=== PATIENT | female | born 1950 | race Caucasian/White ===

== ENCOUNTER → 2021-05-30 14:25 | Outpatient (BNVA) | payer MEDICARE, OTHER, SELFPAY | PROVIDERS: Family Provider Family Medicine; PCP Family Medicine; Visit Provider Internal Medicine | DX: E03.9 Hypothyroidism, unspecified (principal) | CPT/HCPCS: 99203; 99204 ==

== ENCOUNTER → 2021-08-15 11:13 | Outpatient (BNVA) | payer MEDICARE, OTHER, SELFPAY | PROVIDERS: Family Provider Family Medicine; PCP Family Medicine; Visit Provider Internal Medicine | DX: E03.9 Hypothyroidism, unspecified (principal); M81.0 Age-related osteoporosis without current pathological fracture | CPT/HCPCS: 99214 ==

== ENCOUNTER 2021-08-29 10:46 | Outpatient (CLI) | payer MEDICARE, SELFPAY ==
[2021-08-29 11:57] LABS: Free T4 Free Thyroxine 2.08 ng/dL (0.82-1.77)
== END 2021-08-29 10:47 | disposition home or self-care (01) ==
LOC: LAB 10:51
PROVIDERS: PCP Family Medicine; Visit Provider Internal Medicine
DX: E03.9 Hypothyroidism, unspecified (principal)
CPT/HCPCS: 84439

== ENCOUNTER 2021-10-15 11:55 | Outpatient (CLI) | payer MEDICARE, OTHER, SELFPAY ==
[2021-10-15 13:08] LABS: Free T4 Free Thyroxine 1.95 ng/dL (0.82-1.77); Thyroid Stimulating Hormone 0.75 uIU/mL (0.27-4.20)
== END 2021-10-15 11:56 | disposition home or self-care (01) ==
LOC: LAB 12:04
PROVIDERS: PCP Family Medicine; Visit Provider Internal Medicine
DX: E03.9 Hypothyroidism, unspecified (principal)
CPT/HCPCS: 36415; 84439; 84443

== ENCOUNTER → 2021-10-17 11:00 | Outpatient (BNVA) | payer MEDICARE, OTHER, SELFPAY | PROVIDERS: PCP Family Medicine; Visit Provider Internal Medicine | DX: E03.9 Hypothyroidism, unspecified (principal); M81.0 Age-related osteoporosis without current pathological fracture | CPT/HCPCS: 99214 ==

== ENCOUNTER 2021-11-01 13:06 | Outpatient (CLI) | payer MEDICARE, OTHER, SELFPAY ==
[2021-11-01 15:05] LABS: Free T4 Free Thyroxine 1.71 ng/dL (0.82-1.77)
== END 2021-11-01 13:07 | disposition home or self-care (01) ==
LOC: LAB 13:11
PROVIDERS: PCP Family Medicine; Visit Provider Internal Medicine
DX: E03.9 Hypothyroidism, unspecified (principal)
CPT/HCPCS: 36415; 84439

== ENCOUNTER 2021-12-24 09:21 | Outpatient (CLI) | payer MEDICARE, OTHER, SELFPAY ==
[2021-12-24 10:26] LABS: Free T4 Free Thyroxine 1.67 ng/dL (0.82-1.77)
== END 2021-12-24 09:22 | disposition home or self-care (01) ==
LOC: LAB 09:23
PROVIDERS: PCP Family Medicine; Visit Provider Internal Medicine
DX: E03.9 Hypothyroidism, unspecified (principal)
CPT/HCPCS: 84439; 84443

== ENCOUNTER 2022-05-16 12:50 | Outpatient (CLI) | payer MEDICARE, OTHER, SELFPAY | END 2022-05-16 12:51 | disposition home or self-care (01) | LOC: LAB 12:53 | PROVIDERS: PCP Family Medicine; Visit Provider Internal Medicine | DX: E03.9 Hypothyroidism, unspecified (principal); M81.0 Age-related osteoporosis without current pathological fracture | CPT/HCPCS: 36415; 84439; 99214 ==

== ENCOUNTER 2022-09-06 20:34 | Emergency (ER) | payer MEDICARE, OTHER, SELFPAY ==
[2022-09-06 20:48] VITALS: BP 157/86; PULSE 84; RESP 16; TEMP 36.5; O2SAT 98; BMI 22.6
--- NOTE | 2022-09-06 20:55 | W.ED.FEMALGU ---
HPI - Female Genitourinary General: Chief complaint: Urogenital-Female Stated complaint: lower back pain, has a UTI Time Seen by Provider: 09/06/22 20:45 History of Present Illness: Patient presents to the ER with complaints of low back pain and left lower quadrant pain. Patient thinks she still has a UTI. Patient has been on Macrobid for 7 days and Cipro for additional 7 days and still is having symptoms. Pertinent past history: recurrent UTIs Onset (ago): week(s) (2) Severity: moderate Female Urogenital Radiation: L Flank Consistency: intermittent Urinary symptoms: Flank Pain Relieving factors: none Associated symptoms: Reports abdominal pain; Deny headache(s) Treatment prior to arrival: other (7 days of Macrobid followed by 7 days of Cipro) Patient : No Review of Systems General: Reports: 10 or more systems reviewed and unremarkable except in HPI and below Const: Denies: fever(s), chills, body aches or change in appetite Eyes: Denies: change in vision ENMT: Denies: throat pain or odynophagia Card: Denies: chest pain, palpitations or irregular heart rhythm Resp: Denies: dyspnea, productive cough, non-productive cough or wheezing GI: Reports: abdominal pain and constipation : Reports: flank pain, dysuria, urinary frequency and urinary urgency Musc: Denies: neck pain, back pain or extremity pain Skin/Breast: Denies: rash, pruritus or erythema Neuro: Denies: headache(s), numbness in extremities or weakness in extremities Psych: Denies: anxiety, depression or mood swings Endo: Denies: polyuria, polydipsia or tired all the time Kwaku/Lymph: Denies: easy bruising, easy bleeding or petechiae All/Imm: Denies: urticaria, throat swelling or tongue swelling PFSH ED PFSH: Medical History Cervical endometriosis Hypothyroid Pelvic floor weakness Prophylactic ovary removal Family History Father Cancer COPD (chronic obstructive pulmonary disease) Mother Asthma Heart attack Social History Smoking and tobacco status: never smoked Quit status (tobacco): not considering quitting Second hand smoke exposure: No Smoking risk assessment/counseling performed?: Yes Alcohol intake: current Alcohol intake frequency: holidays/special occasions only Alcohol type: wine Desire information about alcohol rehabilitation?: No Counseling given: No Desire information about substance/drug rehabilitation?: No Counseling given: No Adopted: No Caregiver/support person: No Lives independently: Yes Household members: spouse Housing: House Marital status: Number of children: 1 Number of grandchildren: 3 Highest education level completed: Bachelor's Degree service: No Current occupational status: retired Physical Exam Const: COMMON NORMALS: no acute distress, average body habitus, patient oriented x3, no limitations, healthy appearing, alert and well nourished HENMT: COMMON NORMALS: normocephalic, atraumatic and hearing grossly normal bilaterally HEAD & SCALP: normocephalic and atraumatic Eye: COMMON NORMALS: Equal, round and reactive pupils present, EOMs intact bilaterally and conjunctivae normal CONJUNCTIVA: Yes conjunctivae normal PUPIL: Yes Equal, round and reactive pupils present Neck/C-Spine: COMMON NORMALS: full ROM, no lymphadenopathy, supple, no JVD and Thyroid normal THYROID: Thyroid normal Lymph: LYMPHATIC: no lymphadenopathy noted Chest: COMMONS NORMALS: normal inspection of the chest and normal palpation of entire chest wall Resp: COMMON NORMALS: normal respiratory effort, No retractions, No use of accessory muscles and clear to auscultation bilaterally AUSCULTATION: clear to auscultation bilaterally Cardio: COMMON NORMALS: no JVD, regular rate, regular rhythm, S1 normal heart sound present, S2 normal heart sound present and No gallops present (Cardio) RATE: regular rate RHYTHM: regular rhythm HEART SOUNDS: S1 normal heart sound present and S2 normal heart sound present GI: COMMON NORMALS: Normal to inspection, nondistended, normoactive bowel sounds present, Soft to palpation, non-tender, No hepatosplenomegaly present and no masses PALPATION: Yes Soft to palpation and Yes No hepatosplenomegaly present : COMMON NORMALS: Yes no CVA tenderness BLADDER/KIDNEY EXAM: Yes no CVA tenderness Back/Pelvis: COMMON NORMALS: no CVA tenderness Extremity: COMMON NORMALS: normal to inspection Neuro: COMMON NORMALS: patient oriented x3, CN's II-XII intact bilaterally, moves all extremities, no focal motor deficits and no sensory deficits noted SENSORIUM/ORIENTATION: Yes alert Psych: COMMON NORMALS: mental status grossly normal, Normal thought process present, cooperative, normal affect and speech normal SPEECH: Yes normal speech THOUGHT PROCESS: Normal thought process present Skin: COMMON NORMALS: no rashes or lesions noted, no wounds, turgor normal, no jaundice, no petechiae and no mottling GENERAL SKIN EXAM: no rashes or lesions noted and turgor normal Course Vital Signs: Vital signs: Vital Signs Temperature 97.7 F 09/06/22 20:48 Pulse Rate 83 09/06/22 22:35 Respiratory Rate 16 09/06/22 22:35 Blood Pressure 153/72 09/06/22 22:35 Pulse Oximetry 99 09/06/22 22:35 Oxygen Delivery Me thod 09/06/22 22:35 MDM - Female Medical Decision Making Patient presents to the ER with 2-week history of UTI-like symptoms were almost completed Macrobid and Cipro with still complaints. Upon history and physical exam review of the lab work which is essentially unremarkable except for low sodium and UTI results and review of the CT scan which showed moderate to severe hydronephrosis and possible stenosis of the ureter as well as severe diverticulosis patient will be referred on an outpatient basis to urology as there is no need for hospitalization due to her BUN and creatinine remaining stable Differential Diagnosis Likely abdominal pain, calculus of kidney, constipation, diverticulitis and gastroenteritis Medical Records I reviewed the patient's medical records. Lab Data 09/06/22 21:12 09/06/22 21:12 Radiology Impressions Abdomen/Pelvis CT 09/06/22 21:02 IMPRESSION: 1. Moderate to severe left hydronephrosis with possible left UPJ stenosis. 2. Severe left lower quadrant colonic diverticulosis. 3. Multiple bibasilar pulmonary nodules with the largest measuring 5.6 mm. Followup as discussed below. For patients at low risk (minimal or absent history of smoking and of other known risk factors), no routine follow-up is indicated. For patients at high risk (history of smoking or of other known risk factors), consider optional CT Chest at 12 months. (Reference: Gurdeep) References: Gurdeep Milan, et al. Guidelines for Management of Incidental Pulmonary Nodules Detected on CT Images: From the Fleischner Society 2017. Radiology. 2017;284(1):228-243. COMMENTS: Consistent with the [employer]'s Incidental Findings Committee white paper (J Am Elicia Radiol 2018): Any incidental renal lesion less than 1 cm or classified as too small to characterize, or any incidental cystic renal lesion characterized as simple-appearing, is likely benign. No follow-up imaging is recommended for these lesions per consensus recommendations based on imaging criteria. Laboratory Results WBC 9.6 10^3/uL (4.0-10.0) 09/06/22 21:12 RBC 4.27 10^6/uL (4.1-5.3) 09/06/22 21:12 Hgb 12.4 g/dL (11.5-15.3) 09/06/22 21:12 Hct 38.0 % (37.0-47.0) 09/06/22 21:12 MCV 89.0 fl (81-99) 09/06/22 21:12 MCH 29.0 pg (28.0-34.0) 09/06/22 21:12 MCHC 32.6 g/dL (30.0-36.0) 09/06/22 21:12 RDW 13.1 % (12.1-15.1) 09/06/22 21:12 Plt Count 410 10^3/cmm (130-400) H 09/06/22 21:12 MPV 8.6 fL (7.4-10.4) 09/06/22 21:12 Neut % (Auto) 68.2 % 09/06/22 21:12 Lymph % (Auto) 22.1 % 09/06/22 21:12 [place] % (Auto) 7.2 % 09/06/22 21:12 Eos % (Auto) 1.8 % 09/06/22 21:12 Baso % (Auto) 0.5 % 09/06/22 21:12 Neut # (Auto) 6.51 10^3/uL (1.8-7.7) 09/06/22 21:12 Lymph # (Auto) 2.1 10^3/uL (0.8-4.8) 09/06/22 21:12 [place] # (Auto) 0.7 10^3/uL (0.2-0.9) 09/06/22 21:12 Eos # (Auto) 0.2 10^3/uL (0.0-0.8) 09/06/22 21:12 Baso # (Auto) 0.1 10^3/uL (0.0-0.1) 09/06/22 21:12 Nucleated RBC % (auto) 0 % 09/06/22 21:12 Nucleated RBCs # 0.0 /100WBC 09/06/22 21:12 Sodium 128 mmol/L (136-145) L 09/06/22 21:12 Potassium 3.8 mmol/L (3.5-5.1) 09/06/22 21:12 Chloride 92 mmol/L (98-107) L 09/06/22 21:12 Carbon Dioxide 25 mmol/L (22-29) 09/06/22 21:12 Anion Gap 14.8 (5-19) 09/06/22 21:12 BUN 12 mg/dL (8-23) 09/06/22 21:12 Creatinine 0.8 mg/dL (0.5-0.9) 09/06/22 21:12 GFR Calculation Not Reportable 09/06/22 21:12 Glucose 97 mg/dL (65-115) 09/06/22 21:12 Calculated Osmolality 266 mOsm/kg (285-295) L 09/06/22 21:12 Calcium 9.5 mg/dL (8.5-10.5) 09/06/22 21:12 Total Bilirubin 0.3 mg/dL (0.15-1.2) 09/06/22 21:12 AST 28 U/L (0-32) 09/06/22 21:12 ALT 10 U/L (0-33) 09/06/22 21:12 Alkaline Phosphatase 108 U/L (35-105) H 09/06/22 21:12 Total Protein 7.7 g/dL (6.6-8.7) 09/06/22 21:12 Albumin 4.1 g/dL (3.5-5.2) 09/06/22 21:12 Globulin 3.6 g/dL (1.3-4.6) 09/06/22 21:12 Urine Color Light yellow (Yellow) 09/06/22 21:23 Urine Appearance Clear (CLEAR) 09/06/22 21:23 Urine pH 7 (5-7) 09/06/22 21:23 Ur Specific [place] 1.005 (1.005-1.030) 09/06/22 21: Urine Protein Neg (Negative) 09/06/22 21: Urine Glucose (UA) Norm (Normal) 09/06/22 21: Urine Ketones 1+ (Negative) H 09/06/22 21: Urine Blood 3+ (Negative) H 09/06/22 21:23 Urine Nitrate Negative (Negative) 09/06/22 21: Urine Bilirubin Neg (Negative) 09/06/22 21: Urine Urobilinogen Neg mg/dL (Negative) 09/06/22 21: Ur Leukocyte Esterase Trace (Negative) H 09/06/22 21: Urine RBC 5-10 /hpf (0-2) H 09/06/22 21: Urine WBC 5-10 /hpf (0-5) H 09/06/22 21: Ur Squamous Epith Cells 0-4 /hpf (0-5) H 09/06/22 21: Ur Transition Epith Cell 0-4 /hpf 09/06/22 21: Amorphous Sediment Not Reportable 09/06/22 21: Urine Bacteria t /hpf (NONE) 09/06/22 21: Urine Mucus t /hpf 09/06/22 21:23 Discharge Plan Discharge Patient Disposition: Home Clinical Impression: Hydronephrosis due to ureteral stricture, Diverticulosis of sigmoid colon, Hyponatremia Condition: Stable Prescriptions: No Action cholecalciferol (vitamin D3) 25 mcg (1,000 unit) capsule 25 mcg PO DAILY levothyroxine 75 mcg tablet 75 mcg PO DAILY Rx Instructions: Take one tablet by mouth daily, and two on Friday. Discharge Orders: Discharge ED (Routine); Ordered 09/06/22 Ordered By: Mickey Boone Referrals: Usama Ruggiero MD [Physician] - 1 week Discharge Activity: Resume usual activity Coding Level of Care Code ED Jeep [employer]ic for [employer]
--- NOTE | 2022-09-06 21:02 | CTR_ITS ---
PROCEDURE INFORMATION: Exam: CT Abdomen And Pelvis With Contrast Exam date and time: 09/06/2022 10:12 PM Age: 72 years old Clinical indication: Abdominal pain; Prior surgery; Surgery type: Oophorectomy; For uterine prolapse; Additional info: Abd pain, flank pain, llq pain, persistent UTI symptoms TECHNIQUE: Imaging protocol: Computed tomography of the abdomen and pelvis with contrast. Radiation optimization: All CT scans at this facility use at least one of these dose optimization techniques: automated exposure control; mA and/or kV adjustment per patient size (includes targeted exams where dose is matched to clinical indication); or iterative reconstruction. Contrast material: OMNI 350; Contrast volume: 100 ml; Contrast route: INTRAVENOUS (IV); REPORTING DATA: Count of CT and Cardiac NM exams in prior 12 months: This patient has received 0 known CTs and 0 known cardiac nuclear medicine studies in the 12 months prior to the current study. COMPARISON: No relevant prior studies available. RADIATION DOSE METRICS: Total DLP (mGy-cm): 402.39 FINDINGS: Lungs: Bibasilar discoid atelectasis and/or scarring. 5.6 mm left lower lobe pulmonary nodule. Axial series 3, image 1. 4 mm right lower lobe pulmonary nodule. Axial series 3, image 6. Possible other smaller nodular opacities in the lung bases. Liver: See Gallbladder and bile ducts finding. Gallbladder and bile ducts: 1.2 cm hepatic cyst between the gallbladder fossa in falciform ligament. Pancreas: Normal. No ductal dilation. Spleen: Calcified splenic granulomas. Adrenal glands: Normal. No mass. Kidneys and ureters: Multiple right renal simple cysts with the largest measuring > 1.0 cm . Moderate to severe left hydronephrosis with possible left UPJ stenosis. Stomach and bowel: Severe left lower quadrant colonic diverticulosis. Appendix: No evidence of appendicitis. Intraperitoneal space: Unremarkable. No free air. No significant fluid collection. Vasculature: Calcification of the abdominal aorta and/or iliac arteries consistent with atherosclerotic vessel disease. Lymph nodes: Unremarkable. No enlarged lymph nodes. Urinary bladder: Unremarkable as visualized. Reproductive: Vaginal pessary. Bones/joints: Unremarkable. No acute fracture. Soft tissues: Unremarkable. CT/CT abdomen pelvis w con* [id number] IMPRESSION: 1. Moderate to severe left hydronephrosis with possible left UPJ stenosis. 2. Severe left lower quadrant colonic diverticulosis. 3. Multiple bibasilar pulmonary nodules with the largest measuring 5.6 mm. Followup as discussed below. For patients at low risk (minimal or absent history of smoking and of other known risk factors), no routine follow-up is indicated. For patients at high risk (history of smoking or of other known risk factors), consider optional CT Chest at 12 months. (Reference: Gurdeep) References: Gurdeep Milan, et al. Guidelines for Management of Incidental Pulmonary Nodules Detected on CT Images: From the Fleischner Society 2017. Radiology. 2017;284(1):228-243. COMMENTS: Consistent with the [employer]'s Incidental Findings Committee white paper (J Am Elicia Radiol 2018): Any incidental renal lesion less than 1 cm or classified as too small to characterize, or any incidental cystic renal lesion characterized as simple-appearing, is likely benign. No follow-up imaging is recommended for these lesions per consensus recommendations based on imaging criteria.
[2022-09-06 21:32] LABS: Basophils # 0.1 10^3/uL (0.0-0.1); Basophils % 0.5 %; Eosinophils # 0.2 10^3/uL (0.0-0.8); Eosinophils % 1.8 %; Hemoglobin 12.4 g/dL (11.5-15.3); Lymphocytes # 2.1 10^3/uL (0.8-4.8); Lymphocytes % 22.1 %; Mean Corpuscular HGB Conc 32.6 g/dL (30.0-36.0); Mean Platelet Volume 8.6 fL (7.4-10.4); Monocytes # 0.7 10^3/uL (0.2-0.9); Monocytes % 7.2 %; Neutrophils # 6.51 10^3/uL (1.8-7.7); Neutrophils % 68.2 %; Nucleated Red Blood Cells % 0 %; Platelet Count 410 10^3/cmm (130-400); Red Blood Count 4.27 10^6/uL (4.1-5.3); Red Cell Distribution Width 13.1 % (12.1-15.1); White Blood Count 9.6 10^3/uL (4.0-10.0)
[2022-09-06 21:42] LABS: Add Urine Microscopic? YES; Bilirubin Urine Neg (Negative); Blood Urine 3+ (Negative); Glucose Urine UA Norm (Normal); Ketones Urine 1+ (Negative); Leukocyte Esterase Urine Trace (Negative); Nitrate Urine Negative (Negative); Protein Urine Neg (Negative); Specific Gravity, Urine 1.005 (1.005-1.030); Urine Appearance Clear (CLEAR); Urine Color Light yellow (Yellow); Urobilinogen Urine Neg (Negative); pH Urine 7 (5-7)
[2022-09-06 21:53] LABS: Alanine Aminotransferase 10 U/L (0-33); Albumin Level 4.1 g/dL (3.5-5.2); Alkaline Phosphatase 108 U/L (35-105); Anion Gap 14.8 (5-19); Aspartate Amino Transferase 28 U/L (0-32); Blood Urea Nitrogen 12 mg/dL (8-23); Calcium 9.5 mg/dL (8.5-10.5); Carbon Dioxide 25 mmol/L (22-29); Chloride 92 mmol/L (98-107); Creatinine Clr Calc Pharmacy 50.6276; Globulin 3.6 g/dL (1.3-4.6); Glucose 97 mg/dL (65-115); Osmolality Calculated 266 mOsm/kg (285-295); Potassium 3.8 mmol/L (3.5-5.1); Sodium 128 mmol/L (136-145); Total Bilirubin 0.3 mg/dL (0.15-1.2); Total Protein 7.7 g/dL (6.6-8.7)
[2022-09-06 21:59] LABS: Add Urine Culture? No; Bacteria Urine t /hpf; Mucus Urine t /hpf; Squamous Epithelial Cell Urine 0-4 /hpf (0-5); Transitional Epi Cells Urine 0-4 /hpf
[2022-09-06] MEDS: iohexol 350 mg/mL 500 mL Btl (per mL) IV (22:07)
[2022-09-06 22:35] VITALS: BP 153/72; PULSE 83; RESP 16; O2SAT 99
--- NOTE | 2022-09-10 15:12 | DCPLANNER ---
Addendum entered by Gertrudis Kee 09/12/22 07:54: Patient had an appointment scheduled with urology - patient did attend appointment Addendum entered by Gertrudis Kee 09/11/22 08:52: Patient has a follow up appointment scheduled for Friday, September 11, 2022 at 10:[address] Ruggiero. Clinic will call patient with appointment information Original Note: network services project manager had message to schedule a follow up appointment for patient with urology. network services project manager sent patients information to front office staff at urology. Patients information will be printed and reviewed. Clinic will call patient with appointment information.
--- NOTE | 2022-09-10 15:22 | DCPLANNER ---
Addendum entered by Gertrudis Kee 09/25/22 09:28: Patient did attend appointment. Original Note: Patient was called due to no primary care physician - patient has an appointment scheduled for Sunday, September 18, 2022 at 10:[address] Jason at [facility]. Patient is aware of appointment.
== END 2022-09-06 23:43 | disposition home or self-care (01) ==
PROVIDERS: Emergency Provider Emergency Medicine
DX: N13.1 Hydronephrosis with ureteral stricture, not elsewhere classified (principal); K57.30 Diverticulosis of large intestine without perforation or abscess without bleeding; E03.9 Hypothyroidism, unspecified
CPT/HCPCS: 74177; 80053; 81001; 85025; 99285; Q9967

== ENCOUNTER → 2022-09-11 12:15 | Outpatient (BNVA) | payer MEDICARE, OTHER, SELFPAY | PROVIDERS: Visit Provider Urology | DX: N32.89 Other specified disorders of bladder (principal); N13.5 Crossing vessel and stricture of ureter without hydronephrosis; R30.0 Dysuria | CPT/HCPCS: 51798; 52000; 81003; 99204 ==

== ENCOUNTER 2022-09-16 09:09 | Inpatient (IN) | payer MEDICARE, OTHER, SELFPAY ==
[2022-09-13 13:31] VITALS: BMI 22.6
--- NOTE | 2022-09-13 13:57 | ECG_ITS ---
[facility] Test Date: 2022-09-13 Pat Name: Symone Olmedo Department: Room: Gender: Female Conciliator: : 1950 Requested By: Johnathan Arce Order Number: [id number] Reading MD: CHRISTEN ZIEGLER Measurements Intervals [place] Rate: 76 P: 64 MI: 158 QRS: -22 QRSD: 81 T: 49 QT: 350 QTc: 394 Interpretive Statements SINUS RHYTHM LOW QRS VOLTAGE IN PRECORDIAL LEADS [QRS DEFLECTION < 1.0 mV IN CHEST LEADS] POSSIBLE ANTERIOR MYOCARDIAL INFARCTION , OF INDETERMINATE AGE [30 ms Q WAVE IN V3/V4, OR R < 0.2 mV IN V4] No previous ECG available for comparison Electronically Signed On 09-14-2022 23:43:14 CDT by CHRISTEN ZIEGLER [id number]
--- NOTE | 2022-09-13 14:41 | P.ANESASSM_ITS ---
Pre-Anesthetic Assessment Height/Weight: Height 1.55 m Weight 54.431 kg Operation Date: 09/16/22 07:00 Proposed Procedures p Transurethral Resection Bladder Tumor(Not Applicable) - Usama Ruggiero MD s CYSTOSCOPY TRANSURETHRAL RESECTION BLADDER TUMOR,LEFT RETROGRADE PYELOGRAM, POSSIBLE URETEROSCOPY POSSIBLE STENT [id number] MODIFIER 26,N32.89 N13.5(Not Applicable) - Usama Ruggiero MD s Retrograde Pyelogram(Left) - Usama Ruggiero MD s Ureteroscopy(Left) - Usama Ruggiero MD s Ureteral Stent Placement(Left) - Usama Ruggiero MD Familial anesthetic complications: none Was Beta Seema taken within 24 hours: N/A Was Clonidine taken within 24 hours: N/A Social Tobacco and No alcohol Exam alert, oriented x 3 and regular rate & rhythm Airway Submandibular: within normal limits Cervical ROM: within normal limits Mallampati: Class II Dentition: false Pulmonary Chronic Obstructive Pulmonary Disease Metabolic Thyroid Disease Neuropsych Anxiety Anesthetic Plan ASA status: 3 Anesthesia: General Medications/Allergies Home Medications Medication Instructions Recorded Confirmed Last Taken Type levothyroxine 75 mcg tablet 75 mcg PO DAILY 10/17/21 09/13/22 Unknown History alprazolam 0.25 mg tablet (Xanax) 0.25 mg PO DAILY 09/13/22 09/13/22 Unknown History Allergies Allergy/AdvReac Type Severity Reaction Status Date / Time No Known Allergies Allergy Verified 09/11/22 12:12 [facility] Anesthesia Medical History Cervical endometriosis Hypothyroid Pelvic floor weakness Prophylactic ovary removal Family History (Updated 09/11/22 @ 12:32 by Nkii Sam) Father , Age 79 Cancer COPD (chronic obstructive pulmonary disease) Mother , Age 83 Asthma Heart attack Social History (Updated 09/11/22 @ 12:34 by Niki Sam) Smoking and tobacco status: former smoker Quit status (tobacco): has quit using tobacco Second hand smoke exposure: No Smoking risk assessment/counseling performed?: Yes Alcohol intake: current Alcohol intake frequency: holidays/special occasions only Alcohol type: wine Desire information about alcohol rehabilitation?: No Counseling given: No Desire information about substance/drug rehabilitation?: No Counseling given: No Adopted: No Caregiver/support person: No Lives independently: Yes Household members: spouse Housing: House Marital status: Number of children: 1 Number of grandchildren: 3 Highest education level completed: Bachelor's Degree service: No Current occupational status: retired Data Anesthesia Cardiac Studies: No Data to Display
[2022-09-13 14:56] LABS: Basophils # 0.1 10^3/uL (0.0-0.1); Basophils % 0.5 %; Eosinophils # 0.2 10^3/uL (0.0-0.8); Eosinophils % 1.9 %; Hematocrit 38.9 % (37.0-47.0); Hemoglobin 12.4 g/dL (11.5-15.3); Lymphocytes # 1.6 10^3/uL (0.8-4.8); Lymphocytes % 17.5 %; Mean Corpuscular HGB Conc 31.9 g/dL (30.0-36.0); Mean Corpuscular Hemoglobin 28.4 pg (28.0-34.0); Mean Platelet Volume 8.5 fL (7.4-10.4); Monocytes # 0.6 10^3/uL (0.2-0.9); Monocytes % 6.5 %; Neutrophils # 6.78 10^3/uL (1.8-7.7); Neutrophils % 73.4 %; Nucleated Red Blood Cells % 0 %; Platelet Count 432 10^3/cmm (130-400); Red Blood Count 4.37 10^6/uL (4.1-5.3); Red Cell Distribution Width 13.2 % (12.1-15.1); White Blood Count 9.3 10^3/uL (4.0-10.0)
[2022-09-13 15:04] LABS: Alanine Aminotransferase 10 U/L (0-33); Albumin Level 3.7 g/dL (3.5-5.2); Alkaline Phosphatase 89 U/L (35-105); Anion Gap 16.7 (5-19); Aspartate Amino Transferase 29 U/L (0-32); Blood Urea Nitrogen 12 mg/dL (8-23); Calcium 9.3 mg/dL (8.5-10.5); Carbon Dioxide 26 mmol/L (22-29); Chloride 101 mmol/L (98-107); Creatinine Clr Calc Pharmacy 50.6276; Globulin 3.7 g/dL (1.3-4.6); Glucose 102 mg/dL (65-115); Osmolality Calculated 288 mOsm/kg (285-295); Potassium 4.7 mmol/L (3.5-5.1); Sodium 139 mmol/L (136-145); Total Bilirubin 0.2 mg/dL (0.15-1.2); Total Protein 7.4 g/dL (6.6-8.7)
[2022-09-16] VITALS (17 sets, daily range): BP systolic 98–163; BP diastolic 57–81; PULSE 56–76; RESP 15–19; TEMP 36.1–37.3; O2SAT 92–100
[2022-09-16] MEDS: sodium chloride 0.9% 1,000 ML 30 ML IV (06:24)
--- NOTE | 2022-09-16 06:47 | ANES.PAUD2 ---
Pre-Anesthetic Update Pre-Anesthetic Assessment: Date of Surgery/Procedure: 09/16/22 Preop Diagnosis: Newly diagnosed bladder tumor Proposed Procedure: Operation Date: 09/16/22 07:00 Proposed Procedures p Transurethral Resection Bladder Tumor(Not Applicable) - Usama Ruggiero MD s CYSTOSCOPY TRANSURETHRAL RESECTION BLADDER TUMOR,LEFT RETROGRADE PYELOGRAM, POSSIBLE URETEROSCOPY POSSIBLE STENT [id number] MODIFIER 26,N32.89 N13.5(Not Applicable) - Usama Ruggiero MD s Retrograde Pyelogram(Left) - Usama Ruggiero MD s Ureteroscopy(Left) - Usama Ruggiero MD s Ureteral Stent Placement(Left) - Usama Ruggiero MD Any changes to Pre-Anesthetic Assessment?: No Last Intake: Intake (cookie before 11 pm) Last Liquid Date 09/15/22 Last Liquid Time 23:45 Last Solid Date 09/15/22 Last Solid Time 23:45 Vitals: Temperature 99.1 F 09/16/22 06:10 Temperature Source Temporal Artery S can 09/16/22 06:10 Pulse Rate 76 09/16/22 06:10 Respiratory Rate 18 09/16/22 06:10 Blood Pressure 147/76 09/16/22 06:10 Blood Pressure Heather n 99 09/16/22 06:10 Pulse Oximetry 97 09/16/22 06:10 Oxygen Delivery Me thod 09/16/22 06:10 Exam: Pre-Anes Outpt Exam: alert, oriented x 3, clear to auscultation bilaterally and regular rate & rhythm Cardiac Studies: No Data to Display
[2022-09-16] MEDS: levofloxacin-dextrose 5 % 500 MG/100 ML PREMIX 100 MG IV (07:13)
--- NOTE | 2022-09-16 07:14 | W.PM.OPSUD ---
Surgery/Procedure H&P Update DATE OF PROCEDURE: September 16, 2022 DATE H&P PERFORMED: 09/11/22 H&P UPDATE INFORMATION: I have reviewed H&P completed within last 30 days, I have examined patient prior to procedure, No changes to prior documentation and H&P is in [facility] EMR on date indicated PREOP DIAGNOSIS: Newly diagnosed bladder tumor PLANNED PROCEDURE: Operation Date: 09/16/22 07:00 Proposed Procedures p Transurethral Resection Bladder Tumor(Not Applicable) - Usama Ruggiero MD s CYSTOSCOPY TRANSURETHRAL RESECTION BLADDER TUMOR,LEFT RETROGRADE PYELOGRAM, POSSIBLE URETEROSCOPY POSSIBLE STENT [id number] MODIFIER 26,N32.89 N13.5(Not Applicable) - Usama Ruggiero MD s Retrograde Pyelogram(Left) - MD kim Saini Ureteroscopy(Left) - Usama Ruggiero MD s Ureteral Stent Placement(Left) - Usama Ruggiero MD
[2022-09-16] MEDS: iohexol 350 mg/mL 100 mL Btl XX (08:04)
--- NOTE | 2022-09-16 09:17 | P.OP_ITS ---
Operative Report Date of procedure: September 16, 2022 Pre-op diagnosis: Newly diagnosed bladder tumor Left ureteral obstruction (UPJ area) without clear evidence of neoplastic etiology Post-op diagnosis: Newly diagnosed bladder tumor likely high-grade and invasive. Left ureteral obstruction (UPJ area) without clear evidence of neoplastic etiology Procedure done: 1. Cystoscopy, LEFT retrograde ureteropyelogram 2. LEFT ureteroscopy (no stent) 3. Transurethral section of bladder tumor large Implants: None Specimens removed/disposition: Bladder tumor chips Pathology: Bladder tumor chips Surgeon: Monik Estimated blood loss: Less than 10 cc Urine output: Not measured Complications: None Findings: Anesthesia: General Condition: Stable Disposition: PACU Intraoperative findings: * No evidence of filling defect at the left UPJ. More consistent with congenital UPJ obstruction. Could not negotiate the flexible ureteroscope to the point of narrowing. No stent * Large invasive bladder tumor with more intramural appearance than papillary. Muscle seen at the base of resection. High-grade appearance Brief History: Symone is a very pleasant 72-year-old white female who was recently evaluated in the emergency department for acute left renal colic. On retrospect she had had lesser degree of similar type symptoms for years on the left flank area. Often when her bladder is overfull she would notice it. The episode that brought her to the emergency department was more consistent with an acute obstructive problem. CT scan demonstrated what appeared to be left UPJ obstruction without obvious stone. Cannot clearly see any soft tissue density at that area either. It was rather inconclusive as to the etiology but the suspicion was based on her prior history of intermittent pain that she actually had some degree of UPJ obstruction chronically with an exacerbation acutely. A coincidental finding on the CT scan was a intramural thickening suspicious for invasive TCCA on the left lateral/anterior bladder wall. 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 The area was quite large as demonstrated on the CT scan. She is admitted now for through outpatient surgery for cystoscopy transurethral section of bladder tumor, left retrograde ureteropyelogram, possible ureteroscopy possible stent pending findings of the obstruction at the UPJ area. If it appears that she has a benign source accounting for the UPJ obstruction the plan will be to hold on any stenting etc. and encourage avoiding excessive fluid intake for symptomatic improvement only until further information is gleaned as to what would be required for the bladder Procedure: After routine preoperative evaluation examination and obtaining of informed consent she was taken to the operating suite on 09/16/2022 where general anesthesia was administered without difficulty after appropriate timeout was performed, SCDs confirmed to be functioning, preoperative antibiotics administered, beta-jamal protocol confirmed. Prepped and draped in the usual sterile fashion in dorsolithotomy position pain careful attention to avoiding pressure points. 21 [place]erratian cystoscope with 30 degree lens was introduced into the urethra meatus and advanced into the bladder without difficulty. The 30 and 70 degree lenses were used to thoroughly inspect the bladder. Findings seen in the clinic were confirmed. The bulk of the tumor was in the anterior left lateral location of the bladder. The bladder was thoroughly flushed with sterile water. An 8 [place]err[place]ian cone-tip catheter was intubated to the left ureteral orifice for left retrograde ureteropyelogram which demonstrated: Normal course and caliber of the ureter until the proximal ureter where there was a distinct area of narrowing just below the UPJ with some tortuosity with characteristics like a crossing vessel appearance the pyelocalyceal system was very dilated. There was no filling defect in this area. There is no irregular mucosal appearance suspicious for neoplastic process A flexible tip guidewire was then easily advanced up the left ureter bypassing this narrowed area curling in the area of the upper pole calyx and the distal ureter was dilated with a 15 Montserratian 4 cm balloon. A 24 cm ureteral access sheath was easily advanced up the left ureter over the wire under fl uoroscopic monitoring but could not be manipulated all the way to the hub. This was consistent with some the narrowing seen below the UPJ. A flexible ureteroscope was then advanced over the wire into the proximal ureter. Visualization was not as good because of the wire reducing the flow of fluid. The wire was removed and the scope was used to inspect carefully the ureter. It could not be manipulated all the way to the UPJ obstruction. Wire was passed again with same result. More contrast was injected then in the area reinspected the same findings as mentioned above. The scope was removed and an opening ureteral catheter was advanced over the guidewire through the sheath to facilitate drainage of the upper tract to prevent UPJ obstruction type pain. The catheter and the sheath were then removed without difficulty. Irrigation was then changed to normal saline and the gyrus scope was passed into the urethra after dilation with [place] sounds. The area involved with tumor was quite large. It was friable. It had a very invasive appearance. The gyrus bipolar system was utilized with the super loop for resection and enough resection was performed to resect the irregular surface/friable tissue and deep into the muscle as confirmed via cystoscopic examination. Total resection area was greater than 5 cm. The button probe was then utilized for meticulous hemostasis. There still was friable tissue but no severe bleeding. The chips were evacuated from the bladder with an Mom Trusted evacuator. Bladder was drained with a 20 [place]err[place]ian three-way Mojica catheter with light CBI with normal saline running. Efflux was clear. Was confirmed to be functioning well. She tolerated procedure well without complications and was awakened in the operating room and returned to the cover room in stable condition. Plans: 1. Admit to observation status with anticipated discharge tomorrow. Decision for catheter in place at discharge or removed prior to discharge will be made tomorrow. 2. We will start proceeding with consultation with oncology for possible bladder sparing techniques as well as neoadjuvant treatment. Soon with tertiary center for consideration of extirpate of therapy in combination with radiation. 3. I reviewed all the above with the patient's family who are actively engaged 4. Consideration for further work-up/repair of left UPJ obstruction will need to be made at some point in this process
[2022-09-16] MEDS: dextrose 5%-ns + KCl 20 20 MEQ/1,000 ML BAG 30 MEQ IV (10:54)
[2022-09-16] MEDS: HYDROcodone-acetaminophen 5-325 mg Tablet 1 TAB PO ×2 (10:56→17:42)
--- NOTE | 2022-09-16 13:52 | ANE.PACU2 ---
Inpatient post-anesthesia follow up: Airway intact: Yes Vital signs: Temperature 97 F Pulse Rate 75 Respiratory Rate 15 Blood Pressure 132/67 Pulse Oximetry 97 Oxygen Delivery Me thod Room Air Oxygen Flow Rate 6 Fraction of Inspir ed Oxygen Hydration adequate: Yes Nausea and vomiting: No Pain level: 1 Mental status: Baseline
[2022-09-16] MEDS: morphine 4 mg/mL SDV 1 mL 2 MG IVP ×3 (13:57→20:11)
[2022-09-16] MEDS: docusate sodium 100 mg Capsule PO (17:41)
[2022-09-17] VITALS (10 sets, daily range): BP systolic 112–152; BP diastolic 64–78; PULSE 66–85; RESP 14–18; TEMP 36.4–36.8; O2SAT 93–94
[2022-09-17] MEDS: HYDROcodone-acetaminophen 5-325 mg Tablet 1 TAB PO ×4 (01:00→20:06)
[2022-09-17] MEDS: morphine 4 mg/mL SDV 1 mL 2 MG IVP ×3 (04:26→16:05)
[2022-09-17] MEDS: ALPRAZolam 0.5 mg Tablet 0.25 MG PO (08:01)
[2022-09-17] MEDS: levothyroxine 75 mcg Tablet PO (08:01)
[2022-09-17] MEDS: docusate sodium 100 mg Capsule PO ×2 (08:01→17:05)
--- NOTE | 2022-09-17 16:48 | PM.PN ---
Subjective Subjective: Urology f/u: POD#1 Having significant LEFT renal colic overnight and throughout today as well. Urine clear. Not emptying well post cath removal today. Was planning on discharge today but due to the difficulty with pain control have changed to inpatient status with need for care to cross at least 2 midnights. Will replace hinson tonight. Focus on pain control. Medications: Reviewed: Yes Vitals/I&O/Wt Last Vital Signs Temp 98.2 F 09/17/22 12:00 Pulse 70 09/17/22 12:00 Resp 18 09/17/22 16:05 BP 117/64 09/17/22 12:00 Pulse Ox 94 09/17/22 12:00 O2 Del Method 09/17/22 12:00 O2 Flow Rate 6 09/16/22 09:06 09/17/22 09/17/22 09/17/22 06:59 14:59 22:59 Intake Total 100 / 740 Balance 100 / -410 Physical Exam Const: COMMON NORMALS: patient oriented x3 and alert Chest: OTHER: Normal movements Resp: OTHER: unlabored GI: OTHER: soft Neuro: COMMON NORMALS: patient oriented x3 SENSORIUM/ORIENTATION: Yes alert Psych: OTHER: mild anxiety Skin: OTHER: no rash Urinary Catheter Management: Hinson: Cath Placed During This Visit: yes, but has since been removed by the nurse Reason for Continuing Indwelling Catheter: Decision to DC Catheter Urinary Catheter Date of Insertion: 09/16/22 Urinary Catheter Time of Insertion: 07:40 Date Urinary Catheter Removed: 09/17/22 Time Urinary Catheter Discontinued: 09:45 Data 09/13/22 14:05 09/13/22 14:05 A&P Assessment and plan (1) UPJ obstruction, acquired: (2) Bladder mass: Plan 1. Replace hinson, will leave at d/c. 2. Reevaluate in AM for discharge appropriateness Attestations Medical Necessity Statement*: requiring parenteral pain meds Coding Level of Care Code Acute Code for Chg Fwd Diagnoses UPJ obstruction, acquired N13.5 Bladder mass N32.89
[2022-09-17] MEDS: dextrose 5%-ns + KCl 20 20 MEQ/1,000 ML BAG 30 MEQ IV (17:40)
--- NOTE | 2022-09-17 18:19 | PC.NURSE ---
6 void trial done today per Dr. Ruggiero. Total of output and bladder scan listed below #1 void: 10cc out/ 150cc bladder scanned #2 void: 10cc out/ 174cc bladder scanned #3 void: 50cc out/ 213cc bladder scanned #4 void: 75cc out/ 237cc bladder scanned- patient reporting extreme discomfort and sharp pains. In and out catheterized and had output of light merced urine 200cc. Pt reports relief after catheterization.
[2022-09-18] MEDS: HYDROcodone-acetaminophen 5-325 mg Tablet 1 TAB PO ×2 (00:40→08:57)
[2022-09-18 03:52] VITALS: BP 125/64; PULSE 78; RESP 15; TEMP 37; O2SAT 92
[2022-09-18] MEDS: ALPRAZolam 0.5 mg Tablet 0.25 MG PO (08:08)
[2022-09-18] MEDS: docusate sodium 100 mg Capsule PO (08:10)
[2022-09-18] MEDS: levothyroxine 75 mcg Tablet PO (08:10)
[2022-09-18 08:15] VITALS: BP 152/64; PULSE 78; RESP 16; TEMP 36.7; O2SAT 98
--- NOTE | 2022-09-18 10:27 | PM.DCS ---
Discharge Providers Date of Admission: 09/17/22 16:40 Date of Discharge: September 18, 2022 Attending Provider at Admission: Usama Ruggiero MD Attending Provider at Discharge: Usama Ruggiero MD Diagnoses at Discharge Discharge Diagnosis (1) UPJ obstruction, acquired: Status: Acute (2) Bladder cancer: Details from hospital stay: High-grade muscle invasive proven at TURBT Status: Acute Reason for Visit Reason for Visit: Brief History: Very pleasant well-preserved 72-year-old white female who was evaluated recently in the emergency department for severe left flank pain consistent with renal colic and a CT scan demonstrated what appeared to be UPJ obstruction with no evidence of a stone. On review of the CT scan though it was also noted that she had a very abnormal appearing bladder with what appeared to be an intramural mass suspicious for TCCA. The first evaluation she had a cystoscopy in my office that demonstrated what appeared to be a high grade invasive TCCA consistent with the finding seen on CT scan and she was admitted for TURBT. We also planned for evaluation of the left upper urinary tract to assess for possible neoplastic process as a source of her left UPJ obstruction area. Hospital Course Hospital Course Was admitted through outpatient surgery on 09/16/2022 where she underwent TURBT of a large mass in the bladder described as above. Also underwent left retrograde ureteropyelogram and flexible ureteroscopy with no clear evidence of intraluminal mass or neoplastic process but rather findings more consistent with traditional UPJ obstruction on the left. (She did provide a history of chronic intermittent milder pain on the left for many years typically exacerbated by a very full bladder). Postoperatively she had a lot of left-sided pain as expected following manipulation of the left ureter with ureteroscopy. I did not leave a stent in for concern for possible retrograde transmission of malignant cells in the absence of a malignancy in the left UPJ. The pain was treated conservatively. She also had some difficulty emptying her bladder which historically was not a typical for her with a significant history of pelvic floor prolapse managed with pessary. The catheter was replaced for bladder drainage to help facilitate symptoms. She had no significant bleeding or concerns related to the TURBT. Final pathology did come back demonstrating high-grade muscle invasive TCCA. On postoperative day #2 she was felt to be a good candidate for further convalescence at home and was discharged with Mojica catheter in place and plans for conservative management of her left flank pain related to the UPJ obstruction. Physical Exam Narrative: Alert oriented no acute distress Normal respiration. No wheezing or labored respiration Abdomen soft Normal extremity movement Urine is clear Normal mental status Urinary Catheter Management: Mojica: Cath Placed During This Visit: yes, but has since been removed by the nurse Reason for Continuing Indwelling Catheter: Acute Urinary Retention or Obstruction Urinary Catheter Date of Insertion: 09/16/22 Urinary Catheter Time of Insertion: 07:40 Date Urinary Catheter Removed: 09/17/22 Time Urinary Catheter Discontinued: 09:45 Discharge Data Studies Completed and Pending Completed Studies During Hospitalization Category Date Time Status Pathology: Surgical [PTH] Routine Pth 09/16/22 09:06 Completed Laboratory Results WBC 9.3 10^3/uL (4.0-10.0) 09/13/22 14:05 RBC 4.37 10^6/uL (4.1-5.3) 09/13/22 14:05 Hgb 12.4 g/dL (11.5-15.3) 09/13/22 14:05 Hct 38.9 % (37.0-47.0) 09/13/22 14:05 MCV 89.0 fl (81-99) 09/13/22 14:05 MCH 28.4 pg (28.0-34.0) 09/13/22 14:05 MCHC 31.9 g/dL (30.0-36.0) 09/13/22 14:05 RDW 13.2 % (12.1-15.1) 09/13/22 14:05 Plt Count 432 10^3/cmm (130-400) H 09/13/22 14:05 MPV 8.5 fL (7.4-10.4) 09/13/22 14:05 Neut % (Auto) 73.4 % 09/13/22 14:05 Lymph % (Auto) 17.5 % 09/13/22 14:05 [place] % (Auto) 6.5 % 09/13/22 14:05 Eos % (Auto) 1.9 % 09/13/22 14:05 Baso % (Auto) 0.5 % 09/13/22 14:05 Neut # (Auto) 6.78 10^3/uL (1.8-7.7) 09/13/22 14:05 Lymph # (Auto) 1.6 10^3/uL (0.8-4.8) 09/13/22 14:05 [place] # (Auto) 0.6 10^3/uL (0.2-0.9) 09/13/22 14:05 Eos # (Auto) 0.2 10^3/uL (0.0-0.8) 09/13/22 14:05 Baso # (Auto) 0.1 10^3/uL (0.0-0.1) 09/13/22 14:05 Nucleated RBC % (auto) 0 % 09/13/22 14:05 Nucleated RBCs # 0.0 /100WBC 09/13/22 14:05 Sodium 139 mmol/L (136-145) 09/13/22 14:05 Potassium 4.7 mmol/L (3.5-5.1) 09/13/22 14:05 Chloride 101 mmol/L (98-107) 09/13/22 14:05 Carbon Dioxide 26 mmol/L (22-29) 09/13/22 14:05 Anion Gap 16.7 (5-19) 09/13/22 14:05 BUN 12 mg/dL (8-23) 09/13/22 14:05 Creatinine 0.8 mg/dL (0.5-0.9) 09/13/22 14:05 GFR Calculation Not Reportable 09/13/22 14:05 Glucose 102 mg/dL (65-115) 09/13/22 14:05 Calculated Osmolality 288 mOsm/kg (285-295) 09/13/22 14:05 Calcium 9.3 mg/dL (8.5-10.5) 09/13/22 14:05 Total Bilirubin 0.2 mg/dL (0.15-1.2) 09/13/22 14:05 AST 29 U/L (0-32) 09/13/22 14:05 ALT 10 U/L (0-33) 09/13/22 14:05 Alkaline Phosphatase 89 U/L (35-105) 09/13/22 14:05 Total Protein 7.4 g/dL (6.6-8.7) 09/13/22 14:05 Albumin 3.7 g/dL (3.5-5.2) 09/13/22 14:05 Globulin 3.7 g/dL (1.3-4.6) 09/13/22 14:05 Vitals Last Vital Signs Temp 98.6 F 09/18/22 03:52 Pulse 78 09/18/22 03:52 Resp 15 09/18/22 03:52 BP 125/64 09/18/22 03:52 Pulse Ox 92 09/18/22 03:52 O2 Del Method 09/18/22 03:52 O2 Flow Rate 6 09/16/22 09:06 Discharge Plan Discharge Patient Disposition: Home Condition: Stable Prescriptions: New cefuroxime axetil 500 mg tablet 500 mg PO BID 10 Days Qty: 20 0RF ondansetron 4 mg tablet,disintegrating 4 mg PO Q8H 4 Days Qty: 12 0RF Percocet 5-325 mg tablet 1 - 2 tab PO Q6H Qty: 12 0RF Continued levothyroxine 75 mcg tablet 75 mcg PO DAILY Rx Instructions: Take one tablet by mouth daily, and two on Friday. alprazolam [Xanax] 0.25 mg Tablet 0.25 mg PO DAILY Discharge Orders: Discharge Order (Routine); Ordered 09/18/22 Ordered By: Usama Ruggiero Referrals: Usama Ruggiero MD [Physician] - 09/23/22 (Voiding trial, [facility]) Discharge Diet: Usual diet Discharge Activity: Limit activity as instructed Patient Instructions: Opioid Safety Activity Restrictions/Additional Instructions: 1. The nurses will provide a leg bag and night bag for discharge. You can choose whichever one you prefer 2. Avoid lifting anything heavier than 10 pounds for at least a couple weeks. 3. Prescription for pain medication, nausea, and an antibiotic has been sent. Complete the antibiotic. Use the others as needed. 4. I will send a consult to oncology for next step evaluation regarding the muscle invasive bladder cancer. Discharge Attestations Time Spent in Discharge Care*: less than 30 min Quality Metrics Clinical Quality Measures [ No reported AMI, CVA or VTE this stay] Coding Level of Care Code Acute Code for Chg Fwd Diagnoses UPJ obstruction, acquired N13.5 Bladder cancer C67.9
[2022-09-18 11:38] VITALS: BP 152/64; PULSE 78; RESP 16; TEMP 36.7; O2SAT 98
== END 2022-09-18 11:40 | disposition home or self-care (01) | DRG 670 ==
LOC: MEDSURG 09:11
PROVIDERS: Admitting Provider Urology; Visit Provider Urology
PROC: 0TBB8ZZ Excision of Bladder, Via Natural or Artificial Opening Endoscopic (ICD-10-PCS; principal; 2022-09-16 07:00)
PROC: 0TJB8ZZ Inspection of Bladder, Via Natural or Artificial Opening Endoscopic (ICD-10-PCS; CPT 52000; 2022-09-16 07:00)
PROC: BT1F1ZZ Fluoroscopy of Left Kidney, Ureter and Bladder using Low Osmolar Contrast (ICD-10-PCS; CPT 74420; 2022-09-16 07:00)
PROC: 0TJ98ZZ Inspection of Ureter, Via Natural or Artificial Opening Endoscopic (ICD-10-PCS; CPT 52351; 2022-09-16 07:00)
DX: C67.9 Malignant neoplasm of bladder, unspecified (principal); N13.5 Crossing vessel and stricture of ureter without hydronephrosis; E03.9 Hypothyroidism, unspecified; R30.0 Dysuria; J44.9 Chronic obstructive pulmonary disease, unspecified; F41.9 Anxiety disorder, unspecified; Z87.891 Personal history of nicotine dependence
CPT/HCPCS: 36415; 51702; 80053; 85025; 88307; 93005; G0378; J1100; J1956; J2270; J2370; J2405; J2704; J3010; J3490; J7030; Q9967

== ENCOUNTER → 2022-09-23 12:15 | Outpatient (BNVA) | payer MEDICARE, OTHER, SELFPAY | PROVIDERS: PCP Family Medicine; Visit Provider Urology | DX: C67.9 Malignant neoplasm of bladder, unspecified (principal); N13.5 Crossing vessel and stricture of ureter without hydronephrosis | CPT/HCPCS: 99213 ==

== ENCOUNTER 2022-10-11 10:35 | Oncology outpatient (recurring) (ONCR) | payer MEDICARE, OTHER, SELFPAY ==
[2022-10-11 11:51] LABS: Total Volume Urine 800 ml
[2022-10-11 12:24] LABS: Creatinine Clearance, Urine 107 mL/Min (88-128); Creatinine, Urine (Cre Clear) 95 mg/dL (28-217)
== END 2022-10-27 23:59 | disposition home or self-care (01) ==
PROVIDERS: PCP Family Medicine; Visit Provider Internal Medicine Hematology & Oncology
DX: C67.8 Malignant neoplasm of overlapping sites of bladder (principal)
CPT/HCPCS: 36415; 82575; 99204

== ENCOUNTER → 2022-10-21 14:28 | Outpatient (BNVA) | payer MEDICARE, OTHER, SELFPAY | PROVIDERS: PCP Family Medicine; Visit Provider Family Medicine | DX: R30.0 Dysuria (principal) | CPT/HCPCS: 81000; 87086 ==

== ENCOUNTER 2022-11-01 14:10 | Outpatient (CLI) | payer MEDICARE, OTHER, SELFPAY ==
[2022-11-01 15:28] LABS: Free T4 Free Thyroxine 1.85 ng/dL (0.82-1.77); Thyroid Stimulating Hormone 12.55 uIU/mL (0.27-4.20)
== END 2022-11-01 14:11 | disposition home or self-care (01) ==
LOC: LAB 14:15
PROVIDERS: PCP Family Medicine; Visit Provider Internal Medicine
DX: E03.9 Hypothyroidism, unspecified (principal)
CPT/HCPCS: 84439; 84443

== ENCOUNTER 2022-11-04 13:35 | Emergency (ER) | payer MEDICARE, OTHER, SELFPAY ==
[2022-11-04 14:07] VITALS: BP 141/77; PULSE 88; RESP 16; TEMP 36.6; O2SAT 95; BMI 21.2
--- NOTE | 2022-11-04 15:44 | CTR_ITS ---
PROCEDURE INFORMATION: Exam: CT Head Without Contrast Exam date and time: 11/04/2022 4:18 PM Age: 72 years old Clinical indication: Altered mental status/memory loss; Additional info: AMS TECHNIQUE: Imaging protocol: Computed tomography of the head without contrast. Radiation optimization: All CT scans at this facility use at least one of these dose optimization techniques: automated exposure control; mA and/or kV adjustment per patient size (includes targeted exams where dose is matched to clinical indication); or iterative reconstruction. REPORTING DATA: Count of CT and Cardiac NM exams in prior 12 months: This patient has received [address] and 0 known cardiac nuclear medicine studies in the 12 months prior to the current study. COMPARISON: No relevant prior studies available. RADIATION DOSE METRICS: Total DLP (mGy-cm): 1022 FINDINGS: Brain: Bilateral chronic basal ganglia calcifications. Mild diffuse white matter disease likely reflecting chronic microvascular ischemic changes. Cerebral ventricles: No ventriculomegaly. Paranasal sinuses: Visualized sinuses are unremarkable. No fluid levels. Mastoid air cells: Visualized mastoid air cells are well aerated. Bones/joints: Unremarkable. No acute fracture. Soft tissues: Unremarkable. CT/CT head wo con* [id number] IMPRESSION: 1. Negative for intracranial hemorrhage or mass effect. 2. Bilateral chronic basal ganglia calcifications. 3. Mild diffuse white matter disease likely reflecting chronic microvascular ischemic changes.
--- NOTE | 2022-11-04 15:45 | XRR_ITS ---
PROCEDURE INFORMATION: Exam: XR Chest Exam date and time: 11/04/2022 3:56 PM Age: 72 years old Clinical indication: Cough and dyspnea; Patient HX: HX of lung and bladder cancer; Additional info: Dyspnea/cough TECHNIQUE: Imaging protocol: Radiologic exam of the chest. Views: 1 view. COMPARISON: CT abdomen pelvis w con* [id number] 09/06/2022 10:12 PM FINDINGS: Lungs: Bibasilar right greater than left atelectasis versus infiltrate. Emphysematous changes. Pleural spaces: Small bilateral pleural effusions. Heart/Mediastinum: Unremarkable. No cardiomegaly. Bones/joints: Unremarkable. XR/XR chest 1V portable [id number] IMPRESSION: 1. Small bilateral pleural effusions. 2. Bibasilar right greater than left atelectasis versus infiltrate. 3. Emphysematous changes.
--- NOTE | 2022-11-04 15:45 | ECG_ITS ---
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 Measurements Intervals [place] Rate: 75 P: 72 CT: 165 QRS: 49 QRSD: 94 T: 70 QT: 365 QTc: 409 Interpretive Statements SINUS RHYTHM WITH OCCASIONAL VENTRICULAR PREMATURE COMPLEXES Compared to ECG 09/13/2022 14:14:32 Ventricular premature complex(es) now present Myocardial infarct finding no longer present Electronically Signed On 11-04-2022 17:09:36 CDT by Enmanuel Raymond M.D. [id number]
[2022-11-04 15:47] VITALS: BP 171/90; PULSE 78; RESP 17; O2SAT 95
--- NOTE | 2022-11-04 16:06 | PC.PHAR ---
pt states she takes care of her own medications-pt states she is not taking oxybutynin 5mg bid filled 10/02/22 30d/s or zoloft 25mg hs filled 10/08/22 90d/s pt states took one tab of each and hasnt taken for a long time
[2022-11-04 16:15] VITALS: BP 175/89; O2SAT 98
[2022-11-04 16:22] LABS: Basophils # 0.1 10^3/uL (0.0-0.1); Basophils % 0.8 %; Eosinophils # 0.2 10^3/uL (0.0-0.8); Hematocrit 36.1 % (37.0-47.0); Hemoglobin 11.5 g/dL (11.5-15.3); Lymphocytes # 1.4 10^3/uL (0.8-4.8); Lymphocytes % 15.8 %; Mean Corpuscular HGB Conc 31.9 g/dL (30.0-36.0); Mean Corpuscular Hemoglobin 27.9 pg (28.0-34.0); Mean Corpuscular Volume 87.6 fl (81-99); Mean Platelet Volume 8.7 fL (7.4-10.4); Monocytes # 0.7 10^3/uL (0.2-0.9); Monocytes % 8.1 %; Neutrophils # 6.29 10^3/uL (1.8-7.7); Nucleated Red Blood Cells % 0 %; Platelet Count 392 10^3/cmm (130-400); Red Blood Count 4.12 10^6/uL (4.1-5.3); Red Cell Distribution Width 14.6 % (12.1-15.1); White Blood Count 8.9 10^3/uL (4.0-10.0)
[2022-11-04 16:27] LABS: Alanine Aminotransferase 9 U/L (0-33); Albumin Level 3.5 g/dL (3.5-5.2); Alkaline Phosphatase 80 U/L (35-105); Anion Gap 15.3 (5-19); Aspartate Amino Transferase 18 U/L (0-32); Blood Urea Nitrogen 17 mg/dL (8-23); Calcium 9.2 mg/dL (8.5-10.5); Carbon Dioxide 26 mmol/L (22-29); Chloride 97 mmol/L (98-107); Globulin 3.4 g/dL (1.3-4.6); Glucose 93 mg/dL (65-115); Osmolality Calculated 281 mOsm/kg (285-295); Potassium 3.3 mmol/L (3.5-5.1); Sodium 135 mmol/L (136-145); Total Bilirubin 0.2 mg/dL (0.15-1.2); Total Protein 6.9 g/dL (6.6-8.7)
--- NOTE | 2022-11-04 16:27 | W.ED.DIZZY ---
Documented by User: Micah Coleman DO 11/05/22 06:06 HPI - Dizziness General: Chief Complaint: Dizziness Stated Complaint: Dizziness, Eyes not focusing, weakness Time Seen by Provider: 11/04/22 15:42 Source: patient Mode of arrival: ambulatory History of Present Illness: HPI Narrative: 72-year-old female presents emergency room with complaints of lightheadedness dizziness sudden onset of double vision this afternoon. She has a history of bladder cancer with metastasis to the lungs no known brain metastasis. She was going to back her car and suddenly noticed she had double vision. She closes 1 eye or covers one eye or the other the double vision goes away but otherwise has been persistent. No chest pain no abdominal pain no difficulty with speech she has had some difficulty with balance. Symptoms began approximately 30 minutes prior to arrival MD elicited complaint: lightheadedness and other (Double vision) Onset (ago): hour(s) Timing: sudden onset Severity: mild Description: room spinning and lightheadedness History of similar symptoms: No Exacerbating factors: nothing Relieving factors: nothing Associated symptoms: Denies abnormal vaginal bleeding, change in hearing, chest pain, chills, cough, diaphoresis, ear discharge, ear pressure, fevers/chills, headache(s), malaise, nausea, nasal congestion, palpitations, rash, short of breath, syncope, tinnitus, vomiting or weakness Associated neuro symptoms: Reports diplopia; Deny confusion, difficulty speaking, dysphagia, extremity weakness, facial numbness, facial weakness, gait changes, numbness in extremities or visual changes Review of Systems Const: Denies: fever(s), chills, malaise or diaphoresis ENMT: Denies: ear discharge, change in hearing, tinnitus or nasal congestion Card: Denies: chest pain, palpitations or syncope Resp: Denies: dyspnea, productive cough or non-productive cough GI: Denies: abdominal pain, nausea, vomiting or dysphagia : Denies: flank pain, difficulty voiding, dysuria, urinary frequency or urinary urgency Skin/Breast: Denies: rash or pruritus Neuro: Denies: headache(s), numbness in extremities or confusion PFSH ED PFSH: Medical History Bladder cancer Diverticulosis Hypothyroidism Pelvic floor weakness pessary Prophylactic ovary removal UPJ obstruction, acquired Surgical History History of oophorectomy, unilateral History of transurethral resection of bladder tumor (TURBT) Family History Father , Age 79 COPD (chronic obstructive pulmonary disease) Dementia Cancer prostate Mother , Age 83 Asthma CAD (coronary artery disease) Denies family history of Diabetes Hypertension Stroke Social History Smoking and tobacco status: former smoker Quit status (tobacco): has quit using tobacco Second hand smoke exposure: No Smoking risk assessment/counseling performed?: Yes Alcohol intake: current Alcohol intake frequency: holidays/special occasions only Alcohol type: wine Substance/Drug Use: never Lives independently: Yes Household members: spouse Housing: House Marital status: Number of children: 1 Number of grandchildren: 3 Highest education level completed: Bachelor's Degree service: No 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 occupational 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 transfusion: Yes Physical Exam Const: GENERAL APPEARANCE: cooperative and comfortable ORIENTATION/CONSCIOUSNESS: Yes awake, Yes oriented to person, Yes oriented to place and Yes oriented to time HENMT: COMMON NORMALS: normocephalic, atraumatic and hearing grossly normal bilaterally HEAD & SCALP: normocephalic and atraumatic Resp: COMMON NORMALS: normal respiratory effort, No retractions, No use of accessory muscles and clear to auscultation bilaterally AUSCULTATION: clear to auscultation bilaterally Cardio: COMMON NORMALS: regular rate, regular rhythm and No murmurs present (Cardio) RATE: regular rate RHYTHM: regular rhythm GI: COMMON NORMALS: Soft to palpation and No hepatosplenomegaly present AUSCULTATION: Yes normoactive bowel sounds PALPATION: Yes Soft to palpation, No Tenderness to palpation present (GI), No Guarding due to palpation present (GI) and Yes No hepatosplenomegaly present Extremity: COMMON NORMALS: normal to inspection, capillary refill normal, no clubbing, cyanosis or edema, no calf tenderness and no pedal edema Neuro: SENSORIUM/ORIENTATION: Yes oriented to person, Yes oriented to place and Yes oriented to time Skin: COMMON NORMALS: no rashes or lesions noted GENERAL SKIN EXAM: no rashes or lesions noted Course Vital Signs: Vital signs: Vital Signs Temperature 97.8 F 11/04/22 14:07 Pulse Rate 80 11/04/22 19:02 Respiratory Rate 23 H 11/04/22 17:49 Blood Pressure 175/87 11/04/22 19:02 Pulse Oximetry 95 11/04/22 19:02 Oxygen Delivery Me thod Room Air 11/04/22 14:07 MDM - Dizziness Medical Decision Making Initially on presentation to only complaint is that of double vision. Her NIH score is 0. She has no ataxia. CT head negative CTA head and neck are pending. Care signed out to Dr. Victoria at change of shift. See final notes for diagnosis and disposition. Patient's care turned over to me to follow-up CT angio head and neck CT angio head and neck here are normal she had some double vision earlier that since resolved she states she feels back at baseline she is able to without any difficulties no signs of acute stroke she is wanting to go home she sees her oncologist Caridad on I feel she is stable for discharge she is to follow-up as scheduled return if worsening she understands agrees to plan. Lab Data 11/04/22 16:05 11/04/22 16:[address] 11/04/22 15:44 IMPRESSION: 1. Negative for intracranial hemorrhage or mass effect. 2. Bilateral chronic basal ganglia calcifications. 3. Mild diffuse white matter disease likely reflecting chronic microvascular ischemic changes. Chest X-Ray 11/04/22 15:45 IMPRESSION: 1. Small bilateral pleural effusions. 2. Bibasilar right greater than left atelectasis versus infiltrate. 3. Emphysematous changes. Head/Neck CTA 11/04/22 17:09 IMPRESSION: No large vessel occlusion. Unremarkable CT head. IMPRESSION: No stenosis or occlusion. REFERENCES: NASCET CRITERIA. The degree of stenosis in the cervical segment of the internal carotid artery is based on NASCET criteria. Normal is no stenosis. Mild is less than 50% stenosis. Moderate is 50-69% stenosis. Severe is 70% to 99% stenosis. Total occlusion is no detectable patent lumen. Laboratory Results WBC 8.9 10^3/uL (4.0-10.0) 11/04/22 16:05 RBC 4.12 10^6/uL (4.1-5.3) 11/04/22 16:05 Hgb 11.5 g/dL (11.5-15.3) 11/04/22 16:05 Hct 36.1 % (37.0-47.0) L 11/04/22 16:05 MCV 87.6 fl (81-99) 11/04/22 16:05 MCH 27.9 pg (28.0-34.0) L 11/04/22 16:05 MCHC 31.9 g/dL (30.0-36.0) 11/04/22 16:05 RDW 14.6 % (12.1-15.1) 11/04/22 16:05 Plt Count 392 10^3/cmm (130-400) 11/04/22 16:05 MPV 8.7 fL (7.4-10.4) 11/04/22 16:05 Neut % (Auto) 71.0 % 11/04/22 16:05 Lymph % (Auto) 15.8 % 11/04/22 16:05 [place] % (Auto) 8.1 % 11/04/22 16:05 Eos % (Auto) 2.0 % 11/04/22 16:05 Baso % (Auto) 0.8 % 11/04/22 16:05 Neut # (Auto) 6.29 10^3/uL (1.8-7.7) 11/04/22 16:05 Lymph # (Auto) 1.4 10^3/uL (0.8-4.8) 11/04/22 16:05 Frederick # (Auto) 0.7 10^3/uL (0.2-0.9) 11/04/22 16:05 Eos # (Auto) 0.2 10^3/uL (0.0-0.8) 11/04/22 16:05 Baso # (Auto) 0.1 10^3/uL (0.0-0.1) 11/04/22 16:05 Nucleated RBC % (auto) 0 % 11/04/22 16:05 Nucleated RBCs # 0.0 /100WBC 11/04/22 16:05 Sodium 135 mmol/L (136-145) L 11/04/22 16:05 Potassium 3.3 mmol/L (3.5-5.1) L 11/04/22 16:05 Chloride 97 mmol/L (98-107) L 11/04/22 16:05 Carbon Dioxide 26 mmol/L (22-29) 11/04/22 16:05 Anion Gap 15.3 (5-19) 11/04/22 16:05 BUN 17 mg/dL (8-23) 11/04/22 16:05 Creatinine 1.0 mg/dL (0.5-0.9) H 11/04/22 16:05 GFR Calculation Not Reportable 11/04/22 16:05 Glucose 93 mg/dL (65-115) 11/04/22 16:05 Calculated Osmolality 281 mOsm/kg (285-295) L 11/04/22 16:05 Calcium 9.2 mg/dL (8.5-10.5) 11/04/22 16:05 Total Bilirubin 0.2 mg/dL (0.15-1.2) 11/04/22 16:05 AST 18 U/L (0-32) 11/04/22 16:05 ALT 9 U/L (0-33) 11/04/22 16:05 Alkaline Phosphatase 80 U/L (35-105) 11/04/22 16:05 Total Protein 6.9 g/dL (6.6-8.7) 11/04/22 16:05 Albumin 3.5 g/dL (3.5-5.2) 11/04/22 16:05 Globulin 3.4 g/dL (1.3-4.6) 11/04/22 16:05 Urine Color Cancelled 11/04/22 17:08 Urine Appearance Cancelled 11/04/22 17:08 Urine pH Cancelled 11/04/22 17:08 Ur Specific [place] Cancelled 11/04/22 17:08 Urine Protein Cancelled 11/04/22 17:08 Urine Glucose (UA) Cancelled 11/04/22 17:08 Urine Ketones Cancelled 11/04/22 17:08 Urine Blood Cancelled 11/04/22 17:08 Urine Nitrate Cancelled 11/04/22 17:08 Urine Bilirubin Cancelled 11/04/22 17:08 Prot Sulfosalicylic Acd Cancelled 11/04/22 17:08 Urine Urobilinogen Cancelled 11/04/22 17:08 Ur Leukocyte Esterase Cancelled 11/04/22 17:08 Discharge Plan Discharge Patient Disposition: Home Clinical Impression: Double vision Condition: Stable Prescriptions: No Action levothyroxine 75 mcg tablet 75 mcg PO QAM alprazolam [Xanax] 0.25 mg tablet 0.25 mg PO DAILY PRN (Reason: anxiety) Qty: 20 0RF ondansetron 4 mg tablet,disintegrating 4 mg PO Q8H PRN (Reason: nausea and vomiting) Qty: 20 0RF Probiotic Blend 2 billion cell-50 mg Capsule 1 cap PO DAILY Rx Instructions: give with meal/snack Percocet 5-325 mg tablet 1 - 2 tab PO Q6H PRN (Reason: Pain) Discharge Orders: Discharge ED (Routine); Ordered 11/04/22 Ordered By: Vanessa Victoria Referrals: Loli Jason MD [Primary Care Provider] - 1-3 days Discharge Diet: Advance as tolerated Discharge Activity: Resume usual activity Patient Instructions: Dizziness (ED) Coding Level of Care Code ED Oyster Washer for Chg Fwd NIH stroke score NIHSS Level Of Consciousness - 1a: 0 Level Of Consciousness Questions - 1b: Both Correct Level Of Consciousness Commands - 1c: Both Correct Best Gaze - 2: Normal Visual Ball - 3: No Visual Loss Facial Palsy - 4: Normal Motor Arm Right - 5: No Drift Motor Arm Left - 5: No Drift Motor Leg Right - 6: No Drift Motor Leg Left - 6: No Drift Limb Ataxia - 7: Absent Sensory - 8: Normal Best Language - 9: No Aphasia Dysarthia - 10: Normal Extinction And Inattention - 11: 0 Score Total Score: 0 Documented by User: Vanessa Victoria MD 11/04/22 18:30 HPI - Dizziness General: Chief Complaint: Dizziness Stated Complaint: Dizziness, Eyes not focusing, weakness Time Seen by Provider: 11/04/22 15:42 PFSH ED PFSH: Medical History Bladder cancer Diverticulosis Hypothyroidism Pelvic floor weakness pessary Prophylactic ovary removal UPJ obstruction, acquired Surgical History History of oophorectomy, unilateral History of transurethral resection of bladder tumor (TURBT) Family History Father , Age 79 COPD (chronic obstructive pulmonary disease) Dementia Cancer prostate Mother , Age 83 Asthma CAD (coronary artery disease) Denies family history of Diabetes Hypertension Stroke Social History Smoking and tobacco status: former smoker Quit status (tobacco): has quit using tobacco Second hand smoke exposure: No Smoking risk assessment/counseling performed?: Yes Alcohol intake: current Alcohol intake frequency: holidays/special occasions only Alcohol type: wine Substance/Drug Use: never Lives independently: Yes Household members: spouse Housing: House Marital status: Number of children: 1 Number of grandchildren: 3 Highest education level completed: Bachelor's Degree service: No 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 occupational 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 transfusion: Yes Course Vital Signs: Vital signs: Vital Signs Temperature 97.8 F 11/04/22 14:07 Pulse Rate 80 11/04/22 19:02 Respiratory Rate 23 H 11/04/22 17:49 Blood Pressure 175/87 11/04/22 19:02 Pulse Oximetry 95 11/04/22 19:02 Oxygen Delivery Me thod Room Air 11/04/22 14:07 MDM - Dizziness Medical Decision Making Patient's care turned over to me to follow-up CT angio head and neck CT angio head and neck here are normal she had some double vision earlier that since resolved she states she feels back at baseline she is able to without any difficulties no signs of acute stroke she is wanting to go home she sees her oncologist Caridad on I feel she is stable for discharge she is to follow-up as scheduled return if worsening she understands agrees to plan. Medical Records I reviewed the patient's medical records. Lab Data I reviewed the patient's lab results. 11/04/22 16:05 11/04/22 16:[address] 11/04/22 15:44 IMPRESSION: 1. Negative for intracranial hemorrhage or mass effect. 2. Bilateral chronic basal ganglia calcifications. 3. Mild diffuse white matter disease likely reflecting chronic microvascular ischemic changes. Chest X-Ray 11/04/22 15:45 IMPRESSION: 1. Small bilateral pleural effusions. 2. Bibasilar right greater than left atelectasis versus infiltrate. 3. Emphysematous changes. Head/Neck CTA 11/04/22 17:09 IMPRESSION: No large vessel occlusion. Unremarkable CT head. IMPRESSION: No stenosis or occlusion. REFERENCES: NASCET CRITERIA. The degree of stenosis in the cervical segment of the internal carotid artery is based on NASCET criteria. Normal is no stenosis. Mild is less than 50% stenosis. Moderate is 50-69% stenosis. Severe is 70% to 99% stenosis. Total occlusion is no detectable patent lumen. Laboratory Results WBC 8.9 10^3/uL (4.0-10.0) 11/04/22 16:05 RBC 4.12 10^6/uL (4.1-5.3) 11/04/22 16:05 Hgb 11.5 g/dL (11.5-15.3) 11/04/22 16:05 Hct 36.1 % (37.0-47.0) L 11/04/22 16:05 MCV 87.6 fl (81-99) 11/04/22 16:05 MCH 27.9 pg (28.0-34.0) L 11/04/22 16:05 MCHC 31.9 g/dL (30.0-36.0) 11/04/22 16:05 RDW 14.6 % (12.1-15.1) 11/04/22 16:05 Plt Count 392 10^3/cmm (130-400) 11/04/22 16:05 MPV 8.7 fL (7.4-10.4) 11/04/22 16:05 Neut % (Auto) 71.0 % 11/04/22 16:05 Lymph % (Auto) 15.8 % 11/04/22 16:05 Frederick % (Auto) 8.1 % 11/04/22 16:05 Eos % (Auto) 2.0 % 11/04/22 16:05 Baso % (Auto) 0.8 % 11/04/22 16:05 Neut # (Auto) 6.29 10^3/uL (1.8-7.7) 11/04/22 16:05 Lymph # (Auto) 1.4 10^3/uL (0.8-4.8) 11/04/22 16:05 Frederick # (Auto) 0.7 10^3/uL (0.2-0.9) 11/04/22 16:05 Eos # (Auto) 0.2 10^3/uL (0.0-0.8) 11/04/22 16:05 Baso # (Auto) 0.1 10^3/uL (0.0-0.1) 11/04/22 16:05 Nucleated RBC % (auto) 0 % 11/04/22 16:05 Nucleated RBCs # 0.0 /100WBC 11/04/22 16:05 Sodium 135 mmol/L (136-145) L 11/04/22 16:05 Potassium 3.3 mmol/L (3.5-5.1) L 11/04/22 16:05 Chloride 97 mmol/L (98-107) L 11/04/22 16:05 Carbon Dioxide 26 mmol/L (22-29) 11/04/22 16:05 Anion Gap 15.3 (5-19) 11/04/22 16:05 BUN 17 mg/dL (8-23) 11/04/22 16:05 Creatinine 1.0 mg/dL (0.5-0.9) H 11/04/22 16:05 GFR Calculation Not Reportable 11/04/22 16:05 Glucose 93 mg/dL (65-115) 11/04/22 16:05 Calculated Osmolality 281 mOsm/kg (285-295) L 11/04/22 16:05 Calcium 9.2 mg/dL (8.5-10.5) 11/04/22 16:05 Total Bilirubin 0.2 mg/dL (0.15-1.2) 11/04/22 16:05 AST 18 U/L (0-32) 11/04/22 16:05 ALT 9 U/L (0-33) 11/04/22 16:05 Alkaline Phosphatase 80 U/L (35-105) 11/04/22 16:05 Total Protein 6.9 g/dL (6.6-8.7) 11/04/22 16:05 Albumin 3.5 g/dL (3.5-5.2) 11/04/22 16:05 Globulin 3.4 g/dL (1.3-4.6) 11/04/22 16:05 Urine Color Cancelled 11/04/22 17:08 Urine Appearance Cancelled 11/04/22 17:08 Urine pH Cancelled 11/04/22 17:08 Ur Specific [place] Cancelled 11/04/22 17:08 Urine Protein Cancelled 11/04/22 17:08 Urine Glucose (UA) Cancelled 11/04/22 17:08 Urine Ketones Cancelled 11/04/22 17:08 Urine Blood Cancelled 11/04/22 17:08 Urine Nitrate Cancelled 11/04/22 17:08 Urine Bilirubin Cancelled 11/04/22 17:08 Prot Sulfosalicylic Acd Cancelled 11/04/22 17:08 Urine Urobilinogen Cancelled 11/04/22 17:08 Ur Leukocyte Esterase Cancelled 11/04/22 17:08 Discharge Plan Discharge Patient Disposition: Home Clinical Impression: Double vision Condition: Stable Prescriptions: No Action levothyroxine 75 mcg tablet 75 mcg PO QAM alprazolam [Xanax] 0.25 mg tablet 0.25 mg PO DAILY PRN (Reason: anxiety) Qty: 20 0RF ondansetron 4 mg tablet,disintegrating 4 mg PO Q8H PRN (Reason: nausea and vomiting) Qty: 20 0RF Probiotic Blend 2 billion cell-50 mg Capsule 1 cap PO DAILY Rx Instructions: give with meal/snack Percocet 5-325 mg tablet 1 - 2 tab PO Q6H PRN (Reason: Pain) Discharge Orders: Discharge ED (Routine); Ordered 11/04/22 Ordered By: Vanessa Victoria Referrals: Loli Jason MD [Primary Care Provider] - 1-3 days Discharge Diet: Advance as tolerated Discharge Activity: Resume usual activity Patient Instructions: Dizziness (ED) Coding Level of Care Code ED Oyster Washer for [place]
[2022-11-04] MEDS: sodium chloride 0.9% 1,000 ML 999 ML IV (16:35)
[2022-11-04 17:00] VITALS: BP 174/95; PULSE 80; RESP 18; O2SAT 92
--- NOTE | 2022-11-04 17:09 | CTR_ITS ---
PROCEDURE INFORMATION: Exam: CTA Head Without And With Contrast, Arteriography Exam date and time: 11/04/2022 5:22 PM Age: 72 years old Clinical indication: Visual disturbance; Additional info: Double vision TECHNIQUE: Imaging protocol: Computed tomographic angiography of the head without and with contrast. Exam focused on the arteries. 3D rendering (Not supervised by radiologist): MIP and/or 3D reconstructed images were created by the technologist. Radiation optimization: All CT scans at this facility use at least one of these dose optimization techniques: automated exposure control; mA and/or kV adjustment per patient size (includes targeted exams where dose is matched to clinical indication); or iterative reconstruction. Contrast material: OMNI 350; Contrast volume: 100 ml; Contrast route: INTRAVENOUS (IV); REPORTING DATA: Count of CT and Cardiac NM exams in prior 12 months: This patient has received [address] and 0 known cardiac nuclear medicine studies in the 12 months prior to the current study. COMPARISON: CT head wo con* [id number] 11/04/2022 4:18 PM RADIATION DOSE METRICS: Total DLP (mGy-cm): 953 FINDINGS: ANTERIOR CIRCULATION: Right internal carotid artery: Intracranial segment is patent with no significant stenosis or occlusion. No aneurysm. Right middle cerebral artery: No occlusion or significant stenosis. No aneurysm. Right anterior cerebral artery: No occlusion or significant stenosis. No aneurysm. Left internal carotid artery: Intracranial segment is patent with no significant stenosis. No aneurysm. Left middle cerebral artery: No occlusion or significant stenosis. No aneurysm. Left anterior cerebral artery: No occlusion or significant stenosis. No aneurysm. POSTERIOR CIRCULATION: Right vertebral artery: No occlusion or significant stenosis. No aneurysm. Left vertebral artery: No occlusion or significant stenosis. No aneurysm. Basilar artery: No occlusion or significant stenosis. No aneurysm. Right posterior cerebral artery: No occlusion or significant stenosis. No aneurysm. Left posterior cerebral artery: No occlusion or significant stenosis. No aneurysm. HEAD: Brain: Normal. No hemorrhage. Unremarkable white matter. No mass effect. Cerebral ventricles: Normal. No ventriculomegaly. Bones/joints: Unremarkable. No acute fracture. Paranasal sinuses: Visualized sinuses are normal. No fluid levels. Mastoid air cells: Visualized mastoids are normal. No mastoid effusion. Soft tissues: Unremarkable. PROCEDURE INFORMATION: Exam: CTA Neck Without And With Contrast Exam date and time: 11/04/2022 5:22 PM Age: 72 years old Clinical indication: Visual disturbance; Additional info: Double vision TECHNIQUE: Imaging protocol: Computed tomographic angiography of the neck without and with contrast. 3D rendering (Not supervised by radiologist): MIP and/or 3D reconstructed images were created by the technologist. Radiation optimization: All CT scans at this facility use at least one of these dose optimization techniques: automated exposure control; mA and/or kV adjustment per patient size (includes targeted exams where dose is matched to clinical indication); or iterative reconstruction. Contrast material: OMNI 350; Contrast volume: 100 ml; Contrast route: INTRAVENOUS (IV); REPORTING DATA: Count of CT and Cardiac NM exams in prior 12 months: This patient has received [address] and 0 known cardiac nuclear medicine studies in the 12 months prior to the current study. COMPARISON: CT head wo con* [id number] 11/04/2022 4:18 PM RADIATION DOSE METRICS: Total DLP (mGy-cm): 953 FINDINGS: Right common carotid artery: No stenosis. No dissection or occlusion. Right internal carotid artery: No stenosis of the extracranial segment. No dissection or occlusion. Right external carotid artery: No occlusion or stenosis of the origin. Left common carotid artery: No stenosis. No dissection or occlusion. Left internal carotid artery: No stenosis of the extracranial segment. No dissection or occlusion. Left external carotid artery: No occlusion or stenosis of the origin. Right vertebral artery: No stenosis. No dissection or occlusion. Left vertebral artery: No stenosis. No dissection or occlusion. Soft tissues: Normal. No significant soft tissue swelling. Bones/joints: No acute fracture. CT/CT angio headneck* [id number] IMPRESSION: No large vessel occlusion. Unremarkable CT head. IMPRESSION: No stenosis or occlusion. REFERENCES: NASCET CRITERIA. The degree of stenosis in the cervical segment of the internal carotid artery is based on NASCET criteria. Normal is no stenosis. Mild is less than 50% stenosis. Moderate is 50-69% stenosis. Severe is 70% to 99% stenosis. Total occlusion is no detectable patent lumen.
[2022-11-04] MEDS: iohexol 350 mg/mL 500 mL Btl (per mL) IV (17:40)
[2022-11-04 17:49] VITALS: BP 175/87; PULSE 80; RESP 23; O2SAT 95
[2022-11-04 19:02] VITALS: BP 175/87; PULSE 80; O2SAT 95
== END 2022-11-04 19:02 | disposition home or self-care (01) ==
PROVIDERS: Family Medicine; Emergency Provider Emergency Medicine; PCP Family Medicine
DX: H53.2 Diplopia (principal); Z87.891 Personal history of nicotine dependence; Z85.51 Personal history of malignant neoplasm of bladder
CPT/HCPCS: 36415; 70450; 70496; 70498; 71045; 80053; 83880; 85025; 93005; 96360; 99285; J7030; Q9967

== ENCOUNTER 2022-11-21 10:12 | Outpatient (CLI) | payer MEDICARE, OTHER, SELFPAY ==
[2022-11-21 11:26] LABS: Free T4 Free Thyroxine 1.61 ng/dL (0.82-1.77); Thyroid Stimulating Hormone 28.13 uIU/mL (0.27-4.20)
== END 2022-11-21 10:13 | disposition home or self-care (01) ==
LOC: LAB 10:15
PROVIDERS: PCP Family Medicine; Visit Provider Internal Medicine
DX: R06.09 Other forms of dyspnea (principal); C67.9 Malignant neoplasm of bladder, unspecified; C78.00 Secondary malignant neoplasm of unspecified lung; E03.9 Hypothyroidism, unspecified; M81.0 Age-related osteoporosis without current pathological fracture; Z79.890 Hormone replacement therapy; C78.02 Secondary malignant neoplasm of left lung
CPT/HCPCS: 36415; 84439; 84443; 99214

== ENCOUNTER 2022-11-25 15:21 | Emergency (ER) | payer MEDICARE, OTHER, SELFPAY ==
[2022-11-25 15:28] VITALS: BP 115/71; PULSE 96; RESP 14; O2SAT 95; BMI 20.5
--- NOTE | 2022-11-25 15:42 | XRR_ITS ---
PROCEDURE INFORMATION: Exam: XR Chest Exam date and time: 11/25/2022 2:50 PM Age: 72 years old Clinical indication: Shortness of breath; Additional info: SOB TECHNIQUE: Imaging protocol: Radiologic exam of the chest. Views: 1 view. COMPARISON: CR XR chest 1V portable [id number] 11/04/2022 3:56 PM FINDINGS: Lungs: Interval increasing bibasilar consolidation is present, consistent with atelectasis, edema, and/or pneumonia. Pleural spaces: There are small unchanged pleural effusion. There is no evidence of pneumothorax. Heart/Mediastinum: The heart is enlarged. Bones/joints: No acute abnormality. XR/XR chest 1V portable [id number] IMPRESSION: Interval increasing bibasilar consolidation is present, consistent with atelectasis, edema, and/or pneumonia.
--- NOTE | 2022-11-25 15:49 | ED_ITS ---
HPI - SOB/Dyspnea General: Chief Complaint: Shortness of Breath/Dyspnea Stated Complaint: lung & Bladder Cancer, low bp, sob Time Seen by Provider: 11/25/22 15:44 History of Present Illness: HPI Narrative: Patient presents today with shortness of breath and fatigue. Patient was discharged from [facility] less than a week ago after diagnosis of bladd er cancer with mets to lung biopsy which partially collapsed her lung patient had left chest tube in for 9 days and thoracentesis. When patient was discharged home they told her to go to the nearest ER if she became hypotensive short of breath or fatigue. Patient would like us to draw an H&H and a chest x- ray for further evaluation. Patient was also unable to get all of her pain pills filled due to [facility] not having enough. MD elicited complaint: shortness of breath Pertinent past history: other (History of metastatic bladder cancer/lung biopsy with partial collapsed lung chest tube and thoracentesis) Context: recent illness Timing: constant Severity: mild Exacerbating factors: exertion Relieving factors: rest Known history of: other (bladder cancer with mets to the lungs) Review of Systems General: Reports: 10 or more systems reviewed and unremarkable except in HPI and below PFSH ED PFSH: Medical History Bladder cancer Diverticulosis Hypothyroidism Pelvic floor weakness pessary Prophylactic ovary removal UPJ obstruction, acquired Surgical History History of oophorectomy, unilateral History of transurethral resection of bladder tumor (TURBT) Family History Father , Age 79 COPD (chronic obstructive pulmonary disease) Dementia Cancer prostate Mother , Age 83 Asthma CAD (coronary artery disease) Denies family history of Diabetes Hypertension Stroke Social History Smoking and tobacco status: former smoker Quit status (tobacco): has quit using tobacco Second hand smoke exposure: No Smoking risk assessment/counseling performed?: Yes Alcohol intake: current Alcohol intake frequency: holidays/special occasions only Alcohol type: wine Substance/Drug Use: never Lives independently: Yes Household members: spouse Housing: House Marital status: Number of children: 1 Number of grandchildren: 3 Highest education level completed: Bachelor's Degree service: No Current occupational 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 transfusion: Yes Physical Exam Const: COMMON NORMALS: no acute distress, average body habitus, patient oriented x3, no limitations, alert and well nourished HENMT: COMMON NORMALS: normocephalic, atraumatic, hearing grossly normal bila terally, external ears normal, Normal external nose present and moist oral mucous membranes HEAD & SCALP: normocephalic and atraumatic NOSE: Normal external nose present EXTERNAL EAR: Yes external ears normal Eye: COMMON NORMALS: Equal, round and reactive pupils present, conjunctivae normal and no scleral icterus CONJUNCTIVA: Yes conjunctivae normal PUPIL: Yes Equal, round and reactive pupils present Neck/C-Spine: COMMON NORMALS: full ROM and no JVD Chest: COMMONS NORMALS: normal inspection of the chest Resp: COMMON NORMALS: normal respiratory effort, No retractions and No use of accessory muscles Cardio: COMMON NORMALS: no JVD, regular rate and regular rhythm RATE: regular rate RHYTHM: regular rhythm Extremity: COMMON NORMALS: normal to inspection Neuro: COMMON NORMALS: patient oriented x3, CN's II-XII intact bilaterally, moves all extremities, no focal motor deficits and no sensory deficits noted SENSORIUM/ORIENTATION: Yes alert Psych: COMMON NORMALS: mental status grossly normal Course Vital Signs: Vital signs: Vital Signs Pulse Rate 96 11/25/22 15:28 Respiratory Rate 14 11/25/22 15:28 Blood Pressure 115/71 11/25/22 15:28 Pulse Oximetry 95 11/25/22 15:28 Oxygen Delivery Me thod Room Air 11/25/22 15:28 MDM - SOB/Dyspnea Medical Decision Making Presents today to the ER with mild increased shortness of breath and fatigue. Patient just got released from the hospital with a diagnosis of metastatic bladder cancer with, while there she had a collapsed lung a chest tube and a right thoracentesis. Patient came here today to have a repeat blood draw chest x-ray and possible partial fill of her pain medicine until she get her prescription filled tomorrow. Hemoglobin is 11 chest x-ray did not show any significant amount of fluid or pneumothorax. These findings was discussed with the patient and her family patient be discharged home with a small prescription for oxycodone 5 mg 5 tablets to get filled today to last her until tomorrow. Differential Diagnosis Unlikely acute exacerbation of chronic obstructive airways disease, congestive heart failure, community acquired pneumonia, asthma with exacerbation or pulmonary embolism Medical Records I reviewed the patient's medical records. Lab Data I reviewed the patient's lab results. 11/25/22 16:03 Labs/Radiology: Radiology Impressions Chest X-Ray 11/25/22 15:42 IMPRESSION: Interval increasing bibasilar consolidation is present, consistent with atelectasis, edema, and/or pneumonia. Laboratory Results Hgb 11.6 g/dL (11.5-15.3) 11/25/22 16:03 Hct 36.7 % (37.0-47.0) L 11/25/22 16:03 Discharge Plan Discharge Patient Disposition: Home Clinical Impression: Shortness of breath, Fatigue Condition: Stable Prescriptions: New oxycodone 5 mg tablet 5 mg PO Q4H Qty: 5 0RF No Action levothyroxine 75 mcg tablet 75 mcg PO QAM polyethylene glycol 3350 [Miralax] 17 gram/dose powder 4 g PO DAILY oxycodone 5 mg tablet 5 mg PO Q4H PRN (Reason: pain) 30 Days Qty: 100 0RF methocarbamol 500 mg tablet 500 mg PO Q8H PRN (Reason: muscle spasm) Qty: 180 0RF alprazolam [Xanax] 0.25 mg tablet 0.25 mg PO TID PRN (Reason: anxiety) Qty: 90 0RF Discharge Orders: Discharge ED (Routine); Ordered 11/25/22 Ordered By: Mickey Boone Referrals: Loli Jason MD [Primary Care Provider] - 1 week Patient Instructions: Shortness of Breath (ED) Activity Restrictions/Additional Instructions: Please keep your appointment already scheduled. And provided a small schedule of oxycodone 5 mg to get you by until he can get your normal prescription completely filled. Coding Level of Care Code ED Supervisor Forming Department for [facility]
[2022-11-25] MEDS: sodium chloride 0.9% 1,000 ML 999 ML IV (16:05)
[2022-11-25 16:22] LABS: Hematocrit 36.7 % (37.0-47.0); Hemoglobin 11.6 g/dL (11.5-15.3)
[2022-11-25 17:01] VITALS: O2SAT 96
== END 2022-11-25 17:02 | disposition home or self-care (01) ==
PROVIDERS: Emergency Provider Emergency Medicine; PCP Family Medicine
DX: R06.02 Shortness of breath (principal); R53.83 Other fatigue; Z87.891 Personal history of nicotine dependence; Z85.51 Personal history of malignant neoplasm of bladder
CPT/HCPCS: 71045; 85014; 85018; 99284; J7030

== ENCOUNTER 2022-11-27 10:19 | Inpatient (IN) | payer MEDICARE, OTHER, SELFPAY ==
[2022-11-27] VITALS (9 sets, daily range): BP systolic 111–132; BP diastolic 66–83; PULSE 83–94; RESP 14–18; TEMP 36.5–37; O2SAT 90–94; BMI 20.5
--- NOTE | 2022-11-27 10:42 | ECG_ITS ---
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 Measurements Intervals [place] Rate: 88 P: 34 AR: 149 QRS: -37 QRSD: 72 T: 27 QT: 335 QTc: 407 Interpretive Statements SINUS RHYTHM LEFT AXIS DEVIATION [QRS AXIS < -30] LOW QRS VOLTAGE IN PRECORDIAL LEADS [QRS DEFLECTION < 1.0 mV IN CHEST LEADS] POSSIBLE ANTERIOR MYOCARDIAL INFARCTION , PROBABLY OLD [30 ms Q WAVE IN V3/V4, OR R < 0.2 mV IN V4] Compared to ECG 11/04/2022 16:01:29 Left-axis deviation now present Low QRS voltage now present Myocardial infarct finding now present Ventricular premature complex(es) no longer present Electronically Signed On 11-28-2022 7:24:03 CDT by Rufina Cisneros M.D. [id number]
--- NOTE | 2022-11-27 11:37 | CT_ITS ---
WS: [id number] CT CHEST ANGIOGRAPHY WITH REFORMATS HISTORY: sob, cancer TECHNIQUE: Contiguous axial images are obtained through the chest during arterial injection of intrav enous contrast. Images are reconstructed to evaluate the pulmonary arteries. MIP imaging also reviewe d. All CT scans at [facility] use at least one of these dose optimization techniques: automat ed exposure control; mA and/or kV adjustment per patient size (includes targeted exams where dose is matched to clinical indication); or iterative reconstruction. CONTRAST: Omnipaque 350; 100 mL IV. DLP: 177.27 mGy.cm COMPARISON: CT abdomen 09/06/2022. Good opacification of the pulmonary arteries. No central pulmonary emboli. Distal bilateral lower lob e arteries are being obscured and compressed by fluid. Large bilateral pleural effusions. RIGHT is slightly greater than the LEFT. There is significant heather on artifact and breathing artifact. Bilateral pulmonary nodules and opacifications. Some of these nod ules appear mass like with the largest measuring 2.4 x 2.2 cm in the LEFT lower lobe. Extensive areas of consolidation and groundglass attenuation and edema. Atherosclerosis aorta. Hilar adenopathy. Lar gest lymph node the RIGHT hilum measures 2.1 x 1.7 cm. Large cluster of lymph nodes at the LEFT hilum measures 4.0 x 2.8 cm. Paratracheal and AP window enlarged lymph nodes are also identified. Mild per icardial thickening. Heart size is normal. Bilateral hydronephrosis is identified involving the kidneys. Only the superior kidneys are imaged. T he hydronephrosis was also present on the prior study but does appear progressed. Increased soft tiss ue surrounding the aorta and extending into the retroperitoneum and retrocrural. Measures 3.4 x 2.0 c m just to the RIGHT of the celiac axis. Mild anterior wedging of T8 and T10. CT/CT angio chest PE protcl [id number] IMPRESSION: 1. Quality of this examination is compromised by breathing motion artifact. 2. No pulmonary emboli identified. 3. Large bilateral layering pleural effusions. 4. Multifocal nodules, pulmonary spiculations and consolidations are noted adelina aterally. As per history patient has lung cancer. Some of these nodules are con cerning for malignancy. Others may be pneumonia or edema. 5. Mediastinal, hilar, retrocrural and celiac axis lymphadenopathy. Extent of the lymph node burden has progressed since the CT of 09/06/2022. 6. Noted hydronephrosis involving the superior poles of each kidney.
--- NOTE | 2022-11-27 11:38 | ED_ITS ---
HPI - SOB/Dyspnea General: Chief Complaint: Shortness of Breath/Dyspnea Stated Complaint: SOB Time Seen by Provider: 11/27/22 11:21 Source: patient and family History of Present Illness: HPI Narrative: This patient returns to the emergency department. She is here because she thinks her shortness of breath sensation is getting worse. She was recently in this emergency department on the and had a evaluation and found to be stable to be discharged at that time. Her back story is that she was in her usual state of health up until somewhere around July of this year when she developed some flank pain and ultimately was found to have bladder cancer. She was referred to the [facility] by the local urologist and evaluation there. During her work-up was also found that she had what appeared to be a metastatic lung nodule. During her biopsy of that lung nodule she relates that she suffered a pneumothorax and spent approximately 9 to 10 days in the hospital at [facility]. She was discharged home and states that she feels short of breath its its ways very heavily on her mind. She states that she has a sensation of air hunger and that she takes Xanax as well as oxycodone and a muscle relaxer to help much of her symptoms. She is not currently receiving any chemotherapy and is scheduled to see the oncologist this coming Friday. She previously was a smoker but did discontinue that habit. She otherwise has no history of heart failure, reactive airway disease etc. No one else is ill at home. She denies fevers cough etc. MD elicited complaint: shortness of breath Associated symptoms: Deny abdominal pain, chest pain, extremity pain, fever(s), nausea, palpitations, syncope or vomiting Review of Systems Const: Reports: change in weight (She has lost approximately 10 pounds since July of this year.); Denies: fever(s) or chills Eyes: Denies: change in vision ENMT: Denies: throat pain, odynophagia, nasal discharge or nasal congestion Card: Reports: dyspnea on exertion; Denies: chest pain, palpitations, irregular heart rhythm, edema, syncope or pre- syncope Resp: Reports: dyspnea; Denies: productive cough, non-productive cough, wheezing or stridor GI: Denies: abdominal pain, nausea, vomiting or diarrhea : Denies: difficulty voiding, dysuria or urinary frequency Musc: Reports: back pain; Denies: neck pain, extremity pain or extremity swelling Skin/Breast: Denies: rash Neuro: Denies: headache(s), numbness in extremities or weakness in extremities Psych: Reports: anxiety Kwaku/Lymph: Denies: easy bruising or easy bleeding PFSH ED PFSH: Medical History Bladder cancer Diverticulosis Hypothyroidism Pelvic floor weakness pessary Prophylactic ovary removal UPJ obstruction, acquired Surgical History History of oophorectomy, unilateral History of transurethral resection of bladder tumor (TURBT) Family History Father , Age 79 COPD (chronic obstructive pulmonary disease) Dementia Cancer prostate Mother , Age 83 Asthma CAD (coronary artery disease) Denies family history of Diabetes Hypertension Stroke Social History Smoking and tobacco status: former smoker Quit status (tobacco): has quit using tobacco Second hand smoke exposure: No Smoking risk assessment/counseling performed?: Yes Alcohol intake: current Alcohol intake frequency: holidays/special occasions only Alcohol type: wine Substance/Drug Use: never Lives independently: Yes Household members: spouse Housing: House Marital status: Number of children: 1 Number of grandchildren: 3 Highest education level completed: Bachelor's Degree service: No 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 Her affect is somewhat flat. Const: COMMON NORMALS: no acute distress and patient oriented x3 GENERAL APPEARANCE: cooperative and comfortable NUTRITIONAL APPEARANCE: thin HENMT: COMMON NORMALS: normocephalic, atraumatic, Normal nasal mucous membranes and turbinates present, moist oral mucous membranes and oropharynx normal HEAD & SCALP: normocephalic and atraumatic NOSE: Normal nasal mucous membranes and turbinates present Eye: COMMON NORMALS: Equal, round and reactive pupils present, EOMs intact bilaterally and conjunctivae normal CONJUNCTIVA: Yes conjunctivae normal PUPIL: Yes Equal, round and reactive pupils present Neck/C-Spine: COMMON NORMALS: full ROM, no lymphadenopathy, no JVD, Thyroid normal and No carotid bruits THYROID: Thyroid normal Chest: COMMONS NORMALS: normal inspection of the chest Resp: COMMON NORMALS: normal respiratory effort, No retractions and No use of accessory muscles EFFORT & INSPECTION: Yes able to speak in complete sentences AUSCULTATION: diminished lung sounds bilateral Cardio: COMMON NORMALS: no JVD, regular rate, regular rhythm, No murmurs present (Cardio) and Peripheral pulses 2+ throughout RATE: regular rate RHYTHM: regular rhythm PERIPHERAL PULSES: Peripheral pulses 2+ throughout GI: COMMON NORMALS: Normal to inspection, nondistended, normoactive bowel sounds present, Soft to palpation and non-tender PALPATION: Yes Soft to palpation : COMMON NORMALS: Yes no CVA tenderness BLADDER/KIDNEY EXAM: Yes no CVA tenderness Back/Pelvis: COMMON NORMALS: no CVA tenderness, thoracic and lumbar spine normal to inspection, no thoracic nor lumbar tenderness and thoraco-lumbar ROM normal Extremity: COMMON NORMALS: normal to inspection, full ROM, capillary refill normal, no calf tenderness and no pedal edema Neuro: COMMON NORMALS: patient oriented x3, moves all extremities, no focal motor deficits and no sensory deficits noted Psych: COMMON NORMALS: mental status grossly normal and speech normal ATTITUDE: Yes calm ACTIVITY/MOTOR BEHAVIOR: Yes appropriate eye contact SPEECH: Yes normal speech and Yes soft MOOD & AFFECT: Yes depressed mood Skin: COMMON NORMALS: no rashes or lesions noted, no wounds and turgor normal GENERAL SKIN EXAM: no rashes or lesions noted and turgor normal Course Reevaluation(s): Reevaluation #1: Patient has large bilateral pleural effusions which are likely malignant in nature given her history. We will go ahead and plan on admission for therapeutic thoracentesis. Will discuss with hospitalist. Time: 14:44 Consultations: Consultation #1: Arely with Dr. Brantley who agreed admit patient for thoracentesis and additional work-up and oncology consultation. Time: 15:23 Vital Signs: Vital signs: Vital Signs Temperature 98.6 F 11/27/22 10:32 Pulse Rate 83 11/27/22 14:00 Respiratory Rate 14 11/27/22 13:53 Blood Pressure 131/70 11/27/22 14:00 Pulse Oximetry 93 11/27/22 14:00 Oxygen Delivery Me thod Nasal Cannula 11/27/22 13:30 Oxygen Flow Rate 2 11/27/22 13:30 MDM - SOB/Dyspnea Medical Decision Making This patient returns turned to our emergency department because of progressive sensation of air hunger and shortness of breath over the past several days. She had been recently seen in this emergency department had a unremarkable chest x- ray at that time. Preceding that she had been seen and evaluated at [facility] for bladder cancer and found to have a likely metastatic lesion to her left lung. She apparently had a biopsy of the lung and had a subsequent pneumothorax and had a chest tube suction subsequent to that incidental occurrence. She denies any fevers or concomitant chest pain other th an just a sense of unable to breathe deeply and deep well breathes well which is been life altering for her recently. Differential diagnosis included pneumonia, pneumothorax, pulmonary embolus, ACS etc. Initial work-up initiated showed a large bilateral pleural effusions on chest CT but no evidence of pulmonary embolus. She had also other findings consistent with her suspected metastatic disease. Initial high-sensitivity troponin was slightly elevated but EKGs were revealing for any signs of ischemia and it is felt that this was not likely to ongoing ACS etc. She is oxygen requiring at this time and will be admitted for diagnostic and therapeutic thoracentesis as well as oncology consultation which was already scheduled for her. Medical Records I reviewed the patient's medical records. Lab Data I reviewed the patient's lab results. 11/27/22 11:57 11/27/22 11:57 Labs/Radiology: Radiology Impressions Chest CTA 11/27/22 11:37 IMPRESSION: 1. Quality of this examination is compromised by breathing motion artifact. 2. No pulmonary emboli identified. 3. Large bilateral layering pleural effusions. 4. Multifocal nodules, pulmonary spiculations and consolidations are noted bilaterally. As per history patient has lung cancer. Some of these nodules are concerning for malignancy. Others may be pneumonia or edema. 5. Mediastinal, hilar, retrocrural and celiac axis lymphadenopathy. Extent of the lymph node burden has progressed since the CT of 09/06/2022. 6. Noted hydronephrosis involving the superior poles of each kidney. Laboratory Results WBC 10.7 10^3/uL (4.0-10.0) H 11/27/22 11:57 RBC 4.64 10^6/uL (4.1-5.3) 11/27/22 11:57 Hgb 12.8 g/dL (11.5-15.3) 11/27/22 11:57 Hct 40.1 % (37.0-47.0) 11/27/22 11:57 MCV 86.4 fl (81-99) 11/27/22 11:57 MCH 27.6 pg (28.0-34.0) L 11/27/22 11:57 MCHC 31.9 g/dL (30.0-36.0) 11/27/22 11:57 RDW 15.0 % (12.1-15.1) 11/27/22 11:57 Plt Count 386 10^3/cmm (130-400) 11/27/22 11:57 MPV 9.2 fL (7.4-10.4) 11/27/22 11:57 Neut % (Auto) 76.9 % 11/27/22 11:57 Lymph % (Auto) 11.2 % 11/27/22 11:57 Mitchell % (Auto) 7.9 % 11/27/22 11:57 Eos % (Auto) 2.1 % 11/27/22 11:57 Baso % (Auto) 1.2 % 11/27/22 11:57 Neut # (Auto) 8.22 10^3/uL (1.8-7.7) H 11/27/22 11:57 Lymph # (Auto) 1.2 10^3/uL (0.8-4.8) 11/27/22 11:57 Mitchell # (Auto) 0.8 10^3/uL (0.2-0.9) 11/27/22 11:57 Eos # (Auto) 0.2 10^3/uL (0.0-0.8) 11/27/22 11:57 Baso # (Auto) 0.1 10^3/uL (0.0-0.1) 11/27/22 11:57 Nucleated RBC % (auto) 0 % 11/27/22 11:57 Nucleated RBCs # 0.0 /100WBC 11/27/22 11:57 Specimen Type Arterial 11/27/22 11:44 Sample Site Radial, left 11/27/22 11:44 ABG pH 7.38 (7.35-7.45) 11/27/22 11:44 ABG pCO2 34.9 mmHg (35-45) L 11/27/22 11:44 ABG pO2 61.6 mmHg (80.0-100.0) L 11/27/22 11:44 ABG HCO3 20.6 mmol/L (22-26) L 11/27/22 11:44 ABG Base Excess -3.9 mmol/L (-2.0-2.0) L 11/27/22 11:44 Chad Test Pos 11/27/22 11:44 Hematocrit 38.8 % (37-47) 11/27/22 11:44 Hgb O2 Saturation 90.6 % (95-100) L 11/27/22 11:44 Carboxyhemoglobin 1.4 %THgb (0.4-20.1) 11/27/22 11:44 Methemoglobin 0.5 % (0.4-1.5) 11/27/22 11:44 Total Hemoglobin 12.7 g/dL (12-16) 11/27/22 11:44 O2 Delivery Device Nc 11/27/22 11:44 O2 Liters/Min 5.0 % 11/27/22 11:44 Gas System Operator ID Felipe 11/27/22 11:44 Sodium 135 mmol/L (136-145) L 11/27/22 11:57 Potassium 4.2 mmol/L (3.5-5.1) 11/27/22 11:57 Chloride 99 mmol/L (98-107) 11/27/22 11:57 Carbon Dioxide 21 mmol/L (22-29) L 11/27/22 11:57 Anion Gap 19.2 (5-19) H 11/27/22 11:57 BUN 13 mg/dL (8-23) 11/27/22 11:57 Creatinine 1.0 mg/dL (0.5-0.9) H 11/27/22 11:57 GFR Calculation Not Reportable 11/27/22 11:57 Glucose 65 mg/dL (65-115) 11/27/22 11:57 Calculated Osmolality 278 mOsm/kg (285-295) L 11/27/22 11:57 Calcium 8.7 mg/dL (8.5-10.5) 11/27/22 11:57 Total Bilirubin 0.3 mg/dL (0.15-1.2) 11/27/22 11:57 AST 28 U/L (0-32) 11/27/22 11:57 ALT 13 U/L (0-33) 11/27/22 11:57 Alkaline Phosphatase 119 U/L (35-105) H 11/27/22 11:57 Troponin T Baseline 22 ng/L (0-10) H 11/27/22 11:57 NT-Pro-B Natriuret Pep 339 pg/mL (0-125) H 11/27/22 11:57 Total Protein 6.6 g/dL (6.6-8.7) 11/27/22 11:57 Albumin 3.2 g/dL (3.5-5.2) L 11/27/22 11:57 Globulin 3.4 g/dL (1.3-4.6) 11/27/22 11:57 EKG Data EKG 1: I personally reviewed and interpreted this EKG as follows: Interpretation: Contemporaneous review of resting EKG reveals a sinus rhythm at 88 bpm. She has normal MT interval, QRS duration, corrected QT interval. She has a slight leftward axis suggestive of possible left anterior Heema block. She has loss of R waves in the anterior precordial leads. No evidence of acute ST-T wave changes at this time. Discharge Plan Discharge Patient Disposition: Admitted As Inpatient Clinical Impression: Metastatic cancer to lung, Bilateral pleural effusion Condition: Stable Prescriptions: No Action polyethylene glycol 3350 [Miralax] 17 gram/dose powder 4 g PO DAILY alprazolam [Xanax] 0.25 mg tablet 0.25 mg PO TID PRN (Reason: anxiety) Qty: 90 0RF levothyroxine 75 mcg tablet See Rx Instructions .ROUTE .COMPLEX Qty: 90 3RF Dose Instruction: TAKE 1 TABLET BY MOUTH EVERY DAY Rx Instructions: TAKE 1 TABLET BY MOUTH EVERY DAY methocarbamol 500 mg tablet 500 mg PO Q8H PRN (Reason: muscle spasm) Qty: 180 0RF oxycodone 5 mg tablet 5 mg PO Q4H PRN (Reason: pain) 30 Days Qty: 100 0RF Referrals: Loli Jason MD [Primary Care Provider] - Coding Level of Care Code ED Immigration Services Officer for [facility] Jaylyn
[2022-11-27 11:55] LABS: ABG PCO2 34.9 mmHg (35-45); ABG PH Result 7.38 (7.35-7.45); Arterial Blood Gas Hematocrit 38.8 % (37-47); Base Excess ABG -3.9 mmol/L (-2.0-2.0); Blood Gas Allen Test Pos; Blood Gas Sample Site Radial, left; Blood Gas Sample Type Arterial; Carboxyhemoglobin 1.4 %THgb (0.4-20.1); HCO3 ABG 20.6 mmol/L (22-26); HGB O2 Sat 90.6 % (95-100); Methemoglobin 0.5 % (0.4-1.5); Oxygen Device NC; PO2 ABG 61.6 mmHg (80.0-100.0); Total Hemoglobin 12.7 g/dL (12-16)
[2022-11-27 12:31] LABS: Basophils # 0.1 10^3/uL (0.0-0.1); Basophils % 1.2 %; Eosinophils # 0.2 10^3/uL (0.0-0.8); Eosinophils % 2.1 %; Hematocrit 40.1 % (37.0-47.0); Hemoglobin 12.8 g/dL (11.5-15.3); Lymphocytes # 1.2 10^3/uL (0.8-4.8); Lymphocytes % 11.2 %; Mean Corpuscular HGB Conc 31.9 g/dL (30.0-36.0); Mean Corpuscular Hemoglobin 27.6 pg (28.0-34.0); Mean Corpuscular Volume 86.4 fl (81-99); Mean Platelet Volume 9.2 fL (7.4-10.4); Monocytes # 0.8 10^3/uL (0.2-0.9); Monocytes % 7.9 %; Neutrophils # 8.22 10^3/uL (1.8-7.7); Neutrophils % 76.9 %; Nucleated Red Blood Cells % 0 %; Platelet Count 386 10^3/cmm (130-400); Red Blood Count 4.64 10^6/uL (4.1-5.3); White Blood Count 10.7 10^3/uL (4.0-10.0)
[2022-11-27 12:45] LABS: Troponin(5th) Baseline 22 ng/L (0-10)
[2022-11-27 12:54] LABS: Alanine Aminotransferase 13 U/L (0-33); Albumin Level 3.2 g/dL (3.5-5.2); Alkaline Phosphatase 119 U/L (35-105); Blood Urea Nitrogen 13 mg/dL (8-23); Calcium 8.7 mg/dL (8.5-10.5); Carbon Dioxide 21 mmol/L (22-29); Chloride 99 mmol/L (98-107); Globulin 3.4 g/dL (1.3-4.6); Glucose 65 mg/dL (65-115); NT Pro B Type Natriuretic Pept 339 pg/mL (0-125); Osmolality Calculated 278 mOsm/kg (285-295); Sodium 135 mmol/L (136-145); Total Bilirubin 0.3 mg/dL (0.15-1.2); Total Protein 6.6 g/dL (6.6-8.7)
[2022-11-27 12:58] LABS: Anion Gap 19.2 (5-19); Aspartate Amino Transferase 28 U/L (0-32); Potassium 4.2 mmol/L (3.5-5.1)
[2022-11-27] MEDS: iohexol 350 mg/mL 500 mL Btl (per mL) IV (13:13)
[2022-11-27] MEDS: oxyCODONE 5 mg IR Tab/Cap PO ×2 (13:53→18:40)
--- NOTE | 2022-11-27 17:12 | PM.HP ---
Providers/Chief Complaint Admitting Physician: Izabella Brower MD Primary Care Provider: Loli Jason MD Chief Complaint: SOB History of Present Illness Symone Olmeod is a 72 year old female with history of stage IV bladder cancer with mets to lungs with lymphadenopathy, was admitted for 9 days at [facility] when she developed left-sided pneumothorax status post chest tube and thoracentesis was done for right-sided pleural effusion presented with chief complaint of worsening of shortness of breath. Patient is stating that she did not qualify for oxygen at the time of discharge, she is experiencing conversational dyspnea, shortness of breath on minimal exertion, not been able to do any kind of chores at home. Her sister is assisting her these days. She has not noticed fever but because of worsening of shortness of breath she decided to come to the hospital for the valuation. In the ER she has been diagnosed with worsening pleural effusion. She is requiring 2.5 L of oxygen. I have requested thoracentesis No active chest pain which fever, nausea, vomiting or diarrhea she is complaining of pain and requires oxycodone quite frequently in a day along muscle relaxants.\ \ Goals of care discussed with the patient and in front of her nurse and the sister she is stating that she is DNR/DNI Review of Systems Eyes: Denies: change in vision ENMT: Denies: throat pain Card: Reports: swelling of feet/ankles Resp: Reports: dyspnea and non-productive cough GI: Denies: abdominal pain : Denies: flank pain Musc: Denies: neck pain Skin/Breast: Denies: rash Neuro: Reports: headache(s) Psych: Reports: anxiety Endo: Denies: polyuria Kwaku/Lymph: Denies: easy bruising All/Imm: Denies: urticaria Medications/Allergies Home Medications Medication Instructions Recorded Confirmed Last Taken Type alprazolam 0.25 mg tablet (Xanax) 0.25 mg PO TID PRN anxiety #90 tabs 11/21/22 11/27/22 Unknown Rx polyethylene glycol 3350 17 4 g PO DAILY 11/21/22 11/27/22 Unknown History gram/dose oral powder (Miralax) methocarbamol 500 mg tablet 500 mg PO Q8H PRN muscle spasm 11/26/22 11/27/22 Unknown Rx #180 tabs oxycodone 5 mg tablet 5 mg PO Q4H PRN pain 30 days #100 11/26/22 11/27/22 Unknown Rx tabs levothyroxine 75 mcg tablet 75 mcg PO DAILY 11/27/22 11/27/22 11/27/22 History Allergies Allergy/AdvReac Type Severity Reaction Status Date / Time ciprofloxacin Allergy nausea Verified 11/25/22 15:27 sulfamethoxazole Allergy nausea Verified 11/25/22 15:27 [From Bactrim] trimethoprim [From Bactrim] Allergy nausea Verified 11/25/22 15:27 PFSH Acute PFSH: Medical History Bladder cancer Diverticulosis Hypothyroidism Pelvic floor weakness pessary Prophylactic ovary removal UPJ obstruction, acquired Surgical History History of oophorectomy, unilateral History of transurethral resection of bladder tumor (TURBT) Family History Father , Age 79 COPD (chronic obstructive pulmonary disease) Dementia Cancer prostate Mother , Age 83 Asthma CAD (coronary artery disease) Denies family history of Diabetes Hypertension Stroke Social History Smoking and tobacco status: former smoker Quit status (tobacco): has quit using tobacco Second hand smoke exposure: No Smoking risk assessment/counseling performed?: Yes Alcohol intake: current Alcohol intake frequency: holidays/special occasions only Alcohol type: wine Substance/Drug Use: never Lives independently: Yes Household members: spouse Housing: House Marital status: Number of children: 1 Number of grandchildren: 3 Highest education level completed: Bachelor's Degree service: No Current occupational 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 transfusion: Yes Vitals/I&O/Wt Last Vital Signs Temp 98.6 F 11/27/22 10:32 Pulse 88 11/27/22 16:30 Resp 14 11/27/22 13:53 BP 130/77 11/27/22 16:30 Pulse Ox 91 11/27/22 16:30 O2 Del Method Nasal Cannula 11/27/22 16:30 O2 Flow Rate 2.5 05/31/23 16:30 Weight last 48 hrs Weight 50.802 kg Physical Exam Narrative: Pleasant cooperative female Currently on 2.5 L oxygen Bilateral breath sounds with mild rhonchi at the base of the lungs Abdomen soft Trace edema of legs Abdomen soft Looks euvolemic Awake and alert GCS 15 Nonfocal neuro exam Sister at the bedside S1, S2 Data 11/27/22 11:57 11/27/22 11:57 A&P Assessment and plan (1) Shortness of breath: (2) Fatigue: (3) Bilateral pleural effusion: (4) Metastatic cancer to lung: (5) Exertional dyspnea: (6) Pulmonary nodule: (7) Hypothyroidism: (8) UPJ obstruction, acquired: (9) Bladder cancer: (10) Osteoporosis: Plan Recurrent pleural effusion Likely cancer related Bladder cancer with mets to lungs lymphadenopathy Stage IV Request thoracentesis tomorrow We will update Dr. Martin She is at risk of recurrent pleural effusion We will request fluid studies with cytology For back pain continue opioids Continue bowel regimen Goals of care discussed with the patient she is DNI/DNI DuoNeb every 4 as needed No need of steroids no active wheezing Acute hypoxia related to pleural effusion, requiring 2.5 L, patient did not qualify for oxygen when she was released from [facility] Preserved ejection fraction, trace edema of legs noted I will put her on low-dose Lasix at this point for mild exacerbation of diastolic CHF Cardiac diet DNR/DNI Attestations Medical Necessity Statement*: Anticipating more than 2 midnights for recurrent pleural effusion related to her cancer Diagnoses Shortness of breath R06.02 Fatigue R53.83 Bilateral pleural effusion J90 Metastatic cancer to lung C78.00 Exertional dyspnea R06.09 Pulmonary nodule R91.1 Hypothyroidism E03.9 UPJ obstruction, acquired N13.5 Bladder cancer C67.9 Osteoporosis M81.0
[2022-11-27 17:51] LABS: Troponin 5 2HR 23.78 ng/L (0-10)
--- NOTE | 2022-11-27 17:56 | ECG_ITS ---
[facility] Test Date: 2022-11-27 Pat Name: Symone Olmedo Department: Room: 270 Gender: Female Administrator Health Care Facility: : [id number] Requested By: Mikhail Lomas Order Number: [id number] Tor MD: Rufina Cisneros M.D. Measurements Intervals [place] Rate: 90 P: 55 AK: 151 QRS: -31 QRSD: 86 T: 43 QT: 347 QTc: 425 Interpretive Statements SINUS RHYTHM WITH OCCASIONAL VENTRICULAR PREMATURE COMPLEXES LEFT AXIS DEVIATION [QRS AXIS < -30] Compared to ECG 11/27/2022 10:42:59 Ventricular premature complex(es) now present Myocardial infarct finding no longer present Electronically Signed On 11-28-2022 7:26:13 CDT by Rufina Cisneros M.D. [id number]
[2022-11-27 18:04] LABS: Troponin 5 2HR Delta 1.78 ABS# (0-10)
[2022-11-27] MEDS: ALPRAZolam 0.5 mg Tablet 0.25 MG PO (18:40)
[2022-11-27] MEDS: morphine IR 15 mg Tablet PO (20:56)
[2022-11-27] MEDS: methocarbamol 500 mg Tablet PO (20:58)
[2022-11-28] VITALS (12 sets, daily range): BP systolic 96–111; BP diastolic 59–71; PULSE 82–90; RESP 14–18; TEMP 36.3–36.7; O2SAT 88–93
[2022-11-28 04:44] LABS: Basophils # 0.1 10^3/uL (0.0-0.1); Basophils % 1.3 %; Eosinophils # 0.4 10^3/uL (0.0-0.8); Hematocrit 34.5 % (37.0-47.0); Hemoglobin 11.1 g/dL (11.5-15.3); Lymphocytes # 1.1 10^3/uL (0.8-4.8); Lymphocytes % 10.5 %; Mean Corpuscular HGB Conc 32.2 g/dL (30.0-36.0); Mean Corpuscular Hemoglobin 27.6 pg (28.0-34.0); Mean Corpuscular Volume 85.8 fl (81-99); Mean Platelet Volume 8.9 fL (7.4-10.4); Monocytes # 1.1 10^3/uL (0.2-0.9); Monocytes % 10.3 %; Neutrophils # 7.47 10^3/uL (1.8-7.7); Neutrophils % 73.2 %; Nucleated Red Blood Cells % 0 %; Platelet Count 335 10^3/cmm (130-400); Red Blood Count 4.02 10^6/uL (4.1-5.3); Red Cell Distribution Width 15.2 % (12.1-15.1); White Blood Count 10.2 10^3/uL (4.0-10.0)
[2022-11-28] MEDS: levothyroxine 75 mcg Tablet PO ×2 (04:53→08:24)
[2022-11-28] MEDS: ALPRAZolam 0.5 mg Tablet 0.25 MG PO ×3 (04:53→20:03)
[2022-11-28 05:04] LABS: Blood Urea Nitrogen 12 mg/dL (8-23); C Reactive Protein 76.6 mg/L (0.0-4.9); Calcium 8.4 mg/dL (8.5-10.5); Carbon Dioxide 23 mmol/L (22-29); Chloride 102 mmol/L (98-107); Glucose 75 mg/dL (65-115); Osmolality Calculated 280 mOsm/kg (285-295); Sodium 136 mmol/L (136-145)
[2022-11-28] MEDS: oxyCODONE 5 mg IR Tab/Cap PO ×3 (08:24→20:03)
--- NOTE | 2022-11-28 08:57 | P.PN_ITS ---
Subjective Subjective: This morning patient General: Chest pain shortness of breath Complain of back pain As per the sister who is at bedside they would like to request hospice referral Dr. Martin is stating that he would like to review all the records and let me know which might take 1 more day because he is not in his office today Vitals/I&O/Wt Last Vital Signs Temp 98.0 F 11/28/22 07:56 Pulse 90 11/28/22 08:50 Resp 18 11/28/22 08:50 BP 104/64 11/28/22 07:56 Pulse Ox 93 11/28/22 08:50 O2 Del Method Nasal Cannula 11/28/22 08:50 O2 Flow Rate 4 11/28/22 08:50 11/27/22 11/28/22 11/28/22 22:59 06:59 14:59 Intake Total 500 / 500 Balance 500 / 500 Weight last 48 hrs Weight 50.802 kg Physical Exam Narrative: ContinueCurrently on 4 L nasal cannula Afebrile Hemodynamic stable Dehydrated Abdomen soft No active chest pain or shortness of breath Sisters at the bedside Nonfocal neuro exam GCS 15 Data 11/28/22 03:58 11/28/22 03:58 A&P Assessment and plan (1) Shortness of breath: (2) Fatigue: (3) Bilateral pleural effusion: (4) Metastatic cancer to lung: (5) Exertional dyspnea: (6) Pulmonary nodule: (7) Hypothyroidism: (8) Bladder cancer: Plan Bladder cancer with mets Recent hospitalization at [place] for pneumothorax and pleural effusion Patient did not qualify for oxygen Currently on 4 L related to recurrent pleural effusion We have requested thoracentesis I will request INR I have touched base with Dr. Martin who would like to review all the records tomorrow and then get back to me Sister is asking for hospice referral:-I would wait 1 more day to get hospice referral, I would like to get opinion of Dr. Martin as well As per the family PET scan did show mets to lungs and her spine I do not have pet scan report She is DNI/DNI Currently on cardiac diet I will start DVT prophylaxis Lovenox after her thoracentesis today She is getting morphine and oxycodone for her back pain No active signs of cauda equina Attestations Medical Necessity Statement*: Continue medical management Diagnoses Shortness of breath R06.02 Fatigue R53.83 Bilateral pleural effusion J90 Metastatic cancer to lung C78.00 Exertional dyspnea R06.09 Pulmonary nodule R91.1 Hypothyroidism E03.9 Bladder cancer C67.9
[2022-11-28 10:05] LABS: INR 0.93 (0.8-1.2)
--- NOTE | 2022-11-28 11:02 | PC.CHAP ---
Pastoral Care Encounter/Spiritual Assessment Type of Contact [] Declined photographic colorist visit [] Patient/Family/Request visit [] Outpatient visit [x ] Follow-up visit [] Physician referral [] Code/Alert [] Routine visit [] Staff referral [] Actively dying [] Patient sleeping [] Family support [] [] Out of room [] Palliative care [] [] Receiving care in room [] Pre-surgical visit [] Trauma [] Long length of stay [] ICU visit [] Other: Relational/Emotional Strength [] Patient feels connected with others/family/visitors/staff [] Distress [] Loneliness/isolation [] Abandonment Spirituality of Patient [] Person of Sheyla [] Attends Moravian of their [place] [] Believes in Prayer [] Reads Bible or Zoroastrianism materials [] There are Spiritual issues to be addressed Applications Analyst Interventions [] Prayer [] Active listening [] Non-anxious presence [] Spiritual/emotional support [] Crisis/trauma care [] Spiritual counseling [] Bereavement support [] Provided bereavement packet [] Provided Bible/devotional materials [] Provided toy/stuffed animal, coloring book to patient or family member [] Provided Communion [] Anointing/[place] [] Salvation [] Completed spiritual assessment [] Other: Impact on Illness or Injury [] Angry [] Fearful [] Anxious [] Often cries [] Exhaustion [] Unable to work [] Unable to attend yazidism [] Unable to walk/stand [] Unable to read [] Unable to drive [] Unable to eat/drink [] Unable to sleep [] Unable to be with family [] Patient intubated [] Other: Summary needs a Follow-up visit Time spent with patient 19 mins
--- NOTE | 2022-11-28 13:18 | XR_ITS ---
WS: [id number] CHEST XRAY TECHNIQUE: Portable chest. CLINICAL INFORMATION: Post thora COMPARISON: November 25, 2022 FINDINGS: Heart: Cardiomegaly. Lungs: Post RIGHT thoracentesis. No pneumothorax. Improved RIGHT pleural effusion. Small bilateral pl eural effusions with compressive atelectasis in the lung bases. Spiculation along the LEFT hilum is u nchanged. Bones: Osteopenia. XR/XR chest 1V portable [id number] IMPRESSION: 1. Post RIGHT thoracentesis. No pneumothorax. 2. Improved RIGHT pleural effusion since the recent CT. No pneumothorax. Resi dual small bilateral pleural effusions with bibasilar consolidation/atelectasis .
[2022-11-28 14:14] LABS: Mononuclear %, Pleural Fluid 90 %; Polynuclear Cells, Pleural % 10 %
[2022-11-28 14:50] LABS: Pleural Fluid Albumin 1.9 g/dL; Total Protein Pleural Fluid 3.3 g/dL
[2022-11-28 15:06] LABS: LDH Pleural Fluid 152 U/L
[2022-11-28 15:07] LABS: Cyto Order Verification No Order
[2022-11-28 15:08] LABS: Appearance, Pleural Fluid CLOUDY (CLEAR); Color, Pleural Fluid Yellow (Pale Yellow)
[2022-11-28 15:14] LABS: PATH Referal YES
--- NOTE | 2022-11-28 17:58 | US_ITS ---
WS: [id number] ULTRASOUND-GUIDED THORACENTESIS CLINICAL INFORMATION: b/l pleural effussuions COMPARISON: None. PROCEDURE: Informed consent: The risks, benefits, and alternatives of the procedure were discussed with the jj ent. Verbal and written consent was obtained. Timeout: A timeout was performed to confirm the correct patient, procedure, and site. Site: RIGHT Preparation: A suitable skin site was identified. The patient was prepped and draped in usual sterile fashion. Lidocaine 1% was used for local anesthesia. Catheter: 4 [place] One-Step catheter. Fluid Volume: 900 ml Color: Clear yellow 50 cc Sent to the laboratory for analysis. Complications: No immediate complications. US/US thoracentesis [id number] IMPRESSION: Uncomplicated ultrasound-guided RIGHT thoracentesis. No pneumothorax on the pos t thoracentesis portable radiograph
[2022-11-29] VITALS (13 sets, daily range): BP systolic 106–123; BP diastolic 63–79; PULSE 74–83; RESP 14–18; TEMP 36.4–36.8; O2SAT 3–94
[2022-11-29 04:58] LABS: Basophils # 0.1 10^3/uL (0.0-0.1); Basophils % 1.3 %; Eosinophils # 0.5 10^3/uL (0.0-0.8); Eosinophils % 4.9 %; Hematocrit 35.4 % (37.0-47.0); Hemoglobin 11.3 g/dL (11.5-15.3); Lymphocytes # 1.1 10^3/uL (0.8-4.8); Lymphocytes % 12.2 %; Mean Corpuscular HGB Conc 31.9 g/dL (30.0-36.0); Mean Corpuscular Hemoglobin 27.8 pg (28.0-34.0); Mean Corpuscular Volume 87.2 fl (81-99); Mean Platelet Volume 8.6 fL (7.4-10.4); Monocytes % 10.9 %; Neutrophils # 6.55 10^3/uL (1.8-7.7); Neutrophils % 70.1 %; Nucleated Red Blood Cells % 0 %; Platelet Count 292 10^3/cmm (130-400); Red Blood Count 4.06 10^6/uL (4.1-5.3); Red Cell Distribution Width 15.3 % (12.1-15.1); White Blood Count 9.4 10^3/uL (4.0-10.0)
[2022-11-29 05:15] LABS: Anion Gap 14.8 (5-19); Blood Urea Nitrogen 13 mg/dL (8-23); Calcium 8.4 mg/dL (8.5-10.5); Carbon Dioxide 24 mmol/L (22-29); Chloride 100 mmol/L (98-107); Glucose 89 mg/dL (65-115); Osmolality Calculated 280 mOsm/kg (285-295); Potassium 3.8 mmol/L (3.5-5.1); Sodium 135 mmol/L (136-145)
[2022-11-29] MEDS: oxyCODONE 5 mg IR Tab/Cap PO ×4 (06:46→20:39)
[2022-11-29] MEDS: ALPRAZolam 0.5 mg Tablet 0.25 MG PO ×3 (06:46→23:48)
[2022-11-29] MEDS: levothyroxine 75 mcg Tablet PO (08:52)
--- NOTE | 2022-11-29 11:37 | PM.PN ---
Subjective Subjective: Exudative changes noted on pleural fluid Patient is on 3 L Able to lay flat Shortness of breath Complaining of back pain Spoke with Dr. Martin this morning who will see her around lunch break Family updated Patient is afebrile Vitals/I&O/Wt Last Vital Signs Temp 97.5 F L 11/29/22 08:00 Pulse 83 11/29/22 08:04 Resp 17 11/29/22 11:26 BP 107/70 11/29/22 08:00 Pulse Ox 93 11/29/22 08:04 O2 Del Method Nasal Cannula 11/29/22 08:04 O2 Flow Rate 3 11/29/22 08:04 11/28/22 11/29/22 11/29/22 22:59 06:59 14:59 Intake Total 240 / 600 240 / 240 Balance 240 / 600 240 / 240 Physical Exam Narrative: Patient is in good spirits Laying supine Bilateral breath sounds with rhonchi Currently on 3 L Laying right lateral position No active discomfort Awake and alert In good spirits GCS 15 Data 11/29/22 04:45 11/29/22 04:45 A&P Assessment and plan (1) Shortness of breath: (2) Fatigue: (3) Bilateral pleural effusion: (4) Metastatic cancer to lung: (5) Exertional dyspnea: (6) Pulmonary nodule: (7) Hypothyroidism: (8) Osteoporosis: (9) Bladder cancer: Plan Bladder cancer with metastasis Dr. Martin to speak with the patient today I am planning to keep patient here over the weekend Status post thoracentesis 900 mL taken out, exudative in nature, Monitor her recurrence of pleural effusion We will repeat chest x-ray tomorrow Currently requiring 3 L of oxygen For acute hypoxia She might be at risk of recurrent pleural effusion she might need pleurodesis in future For now continue opioids and does not want to use bowel regimen for now agreeable to use by tomorrow if she stays constipated she does not want to use senna S okay with MiraLAX DNR/DNI Request physical therapy Attestations Medical Necessity Statement*: Continue medical management Diagnoses Shortness of breath R06.02 Fatigue R53.83 Bilateral pleural effusion J90 Metastatic cancer to lung C78.00 Exertional dyspnea R06.09 Pulmonary nodule R91.1 Hypothyroidism E03.9 Osteoporosis M81.0 Bladder cancer C67.9
[2022-11-29] MEDS: heparin 5,000 unit/mL INJ 1 mL 5000 UNIT SUBCUT (16:30)
[2022-11-29] MEDS: methocarbamol 500 mg Tablet PO (23:35)
[2022-11-30] VITALS (8 sets, daily range): BP systolic 110–136; BP diastolic 62–83; PULSE 79–85; RESP 15–20; TEMP 36.4–36.8; O2SAT 86–94
--- NOTE | 2022-11-30 00:13 | PC.NURSE ---
PT CARE Assumed care of pt at this time. Is resting quietly in bed. Resp even and unlabored
--- NOTE | 2022-11-30 04:00 | XRR_ITS ---
PROCEDURE INFORMATION: Exam: XR Chest Exam date and time: 11/30/2022 4:16 AM Age: 72 years old Clinical indication: Patient HX: F/u RT pleural effusion. History of lung cancer. TECHNIQUE: Imaging protocol: Radiologic exam of the chest. Views: 1 view. COMPARISON: CR XR chest 1V portable [id number] 11/28/2022 1:41 PM FINDINGS: Lungs: Increased bilateral perihilar opacity since 11/28/2022. Pleural spaces: Stable blunted costophrenic sulci and obscured bilateral hemidiaphragms. Nodes pneumothorax. Heart/Mediastinum: Cardiomediastinal contours are partially obscured. The cardiac silhouette is prominent. Bones/joints: Bones are unremarkable. XR/XR chest 1V portable [id number] IMPRESSION: Increased bilateral perihilar opacity and persistent pleural effusions since 11/28/2022. Findings suggest increased pulmonary edema, infection, or atelectasis.
[2022-11-30] MEDS: heparin 5,000 unit/mL INJ 1 mL 5000 UNIT SUBCUT (04:15)
[2022-11-30] MEDS: morphine IR 15 mg Tablet PO (04:34)
[2022-11-30 05:32] LABS: Basophils # 0.1 10^3/uL (0.0-0.1); Eosinophils # 0.4 10^3/uL (0.0-0.8); Eosinophils % 4.1 %; Hematocrit 35.8 % (37.0-47.0); Hemoglobin 11.6 g/dL (11.5-15.3); Lymphocytes % 12.1 %; Mean Corpuscular HGB Conc 32.4 g/dL (30.0-36.0); Mean Corpuscular Hemoglobin 28.9 pg (28.0-34.0); Mean Corpuscular Volume 89.3 fl (81-99); Monocytes # 0.7 10^3/uL (0.2-0.9); Neutrophils # 6.35 10^3/uL (1.8-7.7); Neutrophils % 74.1 %; Nucleated Red Blood Cells % 0 %; Platelet Count 322 10^3/cmm (130-400); Red Blood Count 4.01 10^6/uL (4.1-5.3); Red Cell Distribution Width 15.4 % (12.1-15.1); White Blood Count 8.6 10^3/uL (4.0-10.0)
[2022-11-30 05:37] LABS: Blood Urea Nitrogen 15 mg/dL (8-23); Calcium 8.6 mg/dL (8.5-10.5); Carbon Dioxide 26 mmol/L (22-29); Chloride 102 mmol/L (98-107); Glucose 92 mg/dL (65-115); Osmolality Calculated 290 mOsm/kg (285-295); Sodium 140 mmol/L (136-145)
[2022-11-30] MEDS: levothyroxine 75 mcg Tablet PO (07:43)
--- NOTE | 2022-11-30 08:43 | PM.CONSULT ---
Providers/Reason For Consult Consulting Physician/Specialty*: Dr. Wiggins/cardiothoracic surgery Reason for Consult*: Recurrent pleural effusion Requesting Physician: Dr. Brower Attending Physician: Britton Reich MD Primary Care Provider: Loli Jason MD History of Present Illness History of Present Illness Symone Olmedo is a 72 year old female with a history of bladder carcinoma and documented pulmonary metastasis. She has had difficulties with recurrent pleural effusion requiring 2 thoracenteses on the right side in the past 10 days. She was admitted on November 27 again with shortness of breath and septic underwent thoracentesis with removal of a large volume of effusion on the right side. I was consulted to consider thoracic vent placement for this recurrent pleural effusion. Most recent chest x-ray this morning reveals a modest effusion on the right and a smaller 1 on the left. She is currently resting comfortably in her bed on nasal cannula. Dr. Welch has been consulted from general surgery for planned Port-A-Cath placement. Review of Systems Const: Reports: change in appetite and fatigue; Denies: fever(s) or chills Eyes: Denies: change in vision or blurry vision ENMT: Denies: throat pain Card: Denies: chest pain or palpitations Resp: Reports: dyspnea and non-productive cough; Denies: hemoptysis GI: Reports: abdominal pain (Left flank and lower abdominal pain) and early satiety; Denies: dysphagia : Reports: flank pain; Denies: difficulty voiding Musc: Reports: back pain Neuro: Denies: headache(s) or weakness in extremities Endo: Denies: polyuria Medications/Allergies Home Medications Medication Instructions Recorded Confirmed Last Taken Type alprazolam 0.25 mg tablet (Xanax) 0.25 mg PO TID PRN anxiety #90 tabs 11/21/22 11/27/22 Unknown Rx polyethylene glycol 3350 17 4 g PO DAILY 11/21/22 11/27/22 Unknown History gram/dose oral powder (Miralax) oxycodone 5 mg tablet 5 mg PO Q4H PRN pain 30 days #100 11/26/22 11/27/22 Unknown Rx tabs levothyroxine 75 mcg tablet 75 mcg PO DAILY 11/27/22 11/27/22 11/27/22 History tizanidine 2 mg tablet 2 mg PO Q8H PRN muscle spasticity 11/28/22 Unknown Rx #90 tabs Allergies Allergy/AdvReac Type Severity Reaction Status Date / Time ciprofloxacin Allergy nausea Verified 11/25/22 15:27 sulfamethoxazole Allergy nausea Verified 11/25/22 15:27 [From Bactrim] trimethoprim [From Bactrim] Allergy nausea Verified 11/25/22 15:27 Current Medications Generic Name Dose Route Start Last Admin Trade Name Freq PRN Reason Stop Dose Admin Alprazolam 0.25 mg 11/27/22 17:58 11/29/22 23:48 Alprazolam 0.5 Mg Tablet PO 0.25 mg TID PRN Administration anxiety Heparin Sodium (Porcine) 5,000 unit 11/29/22 16:30 11/30/22 04:15 Heparin 5,000 Unit/Ml Inj 1 Ml SUBCUT 5,000 unit Q12H HUGO Administration Levothyroxine Sodium 75 mcg 11/28/22 05:00 11/30/22 07:43 Levothyroxine 75 Mcg Tablet PO 75 mcg DAILY HUGO Administration Methocarbamol 500 mg 11/27/22 17:58 11/29/22 23:35 Methocarbamol 500 Mg Tablet PO 500 mg Q8H PRN Administration muscle spasm Morphine Sulfate 15 mg 11/27/22 17:58 11/30/22 04:34 Morphine Ir 15 Mg Tablet PO 15 mg Q6H PRN Administration pAIN Oxycodone HCl 5 mg 11/27/22 17:58 11/29/22 20:39 Oxycodone 5 Mg Ir Tab/Cap PO 5 mg Q4H PRN Administration pain Senna/Docusate Sodium 1 tab 11/28/22 09:00 11/29/22 08:51 Sennosides-Docusate Tablet PO Not Given DAILY HUGO PFSH Acute PFSH: Medical History Bladder cancer Diverticulosis Hypothyroidism Pelvic floor weakness pessary Prophylactic ovary removal UPJ obstruction, acquired Surgical History History of oophorectomy, unilateral History of transurethral resection of bladder tumor (TURBT) Family History Father , Age 79 COPD (chronic obstructive pulmonary disease) Dementia Cancer prostate Mother , Age 83 Asthma CAD (coronary artery disease) Denies family history of Diabetes Hypertension Stroke Social History Smoking and tobacco status: former smoker Quit status (tobacco): has quit using tobacco Second hand smoke exposure: No Smoking risk assessment/counseling performed?: Yes Alcohol intake: current Alcohol intake frequency: holidays/special occasions only Alcohol type: wine Substance/Drug Use: never Lives independently: Yes Household members: spouse Housing: House Marital status: Number of children: 1 Number of grandchildren: 3 Highest education level completed: Bachelor's Degree service: No 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 occupational 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 transfusion: Yes Vitals/I&O/Wt Last Vital Signs Temp 98.2 F 11/30/22 04:00 Pulse 83 11/30/22 07:52 Resp 16 11/30/22 07:52 BP 110/62 11/30/22 04:00 Pulse Ox 94 11/30/22 07:52 O2 Del Method Nasal Cannula 11/30/22 07:52 O2 Flow Rate 3 11/30/22 07:52 11/29/22 11/30/22 11/30/22 22:59 06:59 14:59 Intake Total 120 / 840 300 / 1140 Balance 120 / 840 300 / 1140 Physical Exam Const: COMMON NORMALS: no acute distress, patient oriented x3 and alert; negative for healthy appearing HENMT: COMMON NORMALS: normocephalic, atraumatic, hearing grossly normal bilaterally, external ears normal and Normal external nose present HEAD & SCALP: normocephalic and atraumatic NOSE: Normal external nose present EXTERNAL EAR: Yes external ears normal Eye: COMMON NORMALS: EOMs intact bilaterally and no scleral icterus Chest: COMMONS NORMALS: normal palpation of entire chest wall Resp: COMMON NORMALS: normal respiratory effort; negative for clear to auscultation bilaterally AUSCULTATION: not clear to auscultation bilaterally and diminished lung sounds on the right in the lower lung gonsalez and bilateral in the lower lung gonsalez Cardio: COMMON NORMALS: regular rate, regular rhythm, S1 normal heart sound present and No murmurs present (Cardio) RATE: regular rate RHYTHM: regular rhythm HEART SOUNDS: S1 normal heart sound present Extremity: COMMON NORMALS: normal to inspection and no clubbing, cyanosis or edema Neuro: COMMON NORMALS: patient oriented x3 SENSORIUM/ORIENTATION: Yes alert Data 11/30/22 04:24 11/30/22 04:24 A&P Assessment and plan (1) Bilateral pleural effusion: Ms. Olmedo is a very pleasant 72-year-old female with bladder carcinoma with documented disease involving her lungs. She had a recurrent pleural effusion on the right side requiring thoracentesis. Because of the persistence and early recurrence of this effusion, thoracic drain has been recommended. Rationale for this was carefully discussed. Details and risk of the procedure reviewed including pneumothorax, direct injury to the lung, bleeding, inability to adequately drain the effusion, need for further procedures, malfunctioning of the drain requiring revision or repeat procedure, pain with the procedure. She wished to proceed. Dr. Welch from our general surgery service is currently scheduled for Port-A-Cath placement for Ms. Olmedo. We will attempt to combine these procedures with the same anesthetic for convenience and therefore have tentatively scheduled for FridayDecember 03. Rationale for the scheduling was carefully discussed with her and she is in agreement. I have placed appropriate orders for planned surgery Friday. My office will contact Ms. Olmedo and family Friday to confirm arrangements for planned procedure on Friday. Consult Attestations Medical Necessity Statement: Recurrent right pleural effusion requiring frequent thoracentesis Coding Level of Care Code Acute Code for Chg Fwd Diagnoses Bilateral pleural effusion J90
[2022-11-30] MEDS: ALPRAZolam 0.5 mg Tablet 0.25 MG PO (09:40)
--- NOTE | 2022-11-30 11:01 | PC.SOCIAL ---
IMM Update pg 2 of IMM updated and reviewed w/ patient. Copy provided and Copy dated, initialed and placed in chart.
--- NOTE | 2022-11-30 12:58 | P.DS_ITS ---
Discharge Providers Date of Admission: 11/27/22 16:46 Date of Discharge: November 30, 2022 Attending Provider at Admission: Izabella Brower MD Attending Provider at Discharge: Britton Reich MD Consults: CT Surgery Primary Care Provider: Loli Jason MD Diagnoses at Discharge Discharge Diagnosis (1) Bilateral pleural effusion: Status: Acute Reason for Visit Reason for Visit: SOB Hospital Course Hospital Course Symone Olmedo is a 72 year old female with history of stage IV bladder cancer with mets to lungs with lymphadenopathy, recent left-sided pneumothorax at OSH, right sided pleural effusion and anxiety who presents worsening of shortness of breath, found to have bilateral pleural effusion. She underweight right sided thoracentesis with improvement in symptoms. CT surgery consulted to evaluate for thoracic vent placement. Patient has port placement scheduled with Dr Welch on Friday. CTS coordinated with to perform both procedures as outpatient on 12/03/22. Patient remained stable and discharged to home. She is to follow up in clinic and for surgery on 12/03/22. Physical Exam Narrative: General: Patient is awake. Pleasant. Head:? Normocephalic. Atraumatic. Neck: No JVD. Cardiovascular: RRR. No gallops. No murmurs. Lungs: Decreased breath sounds in bilateral bases. No wheezing. No rales. Skin: No jaundice. No rashes. Abdomen: Normal bowel sounds, abdomen soft and nontender. Extremities: No cyanosis or clubbing. Musculoskeletal: Normal muscle mass. Neurological:? No myoclonus.? Moves all 4 extremities. Discharge Data Studies Completed and Pending Completed Studies During Hospitalization Category Date Time Status CT angio chest PE protcl [id number] Stat Cat Scan 11/27/22 11:37 Completed XR chest 1V portable [id number] Routine Exams 11/30/22 04:00 Completed XR chest 1V portable [id number] Stat Exams 11/28/22 13:18 Completed US thoracentesis [id number] Routine Ultrasound 11/28/22 17:58 Completed Radiology Impressions Chest CTA 11/27/22 11:37 IMPRESSION: 1. Quality of this examination is compromised by breathing motion artifact. 2. No pulmonary emboli identified. 3. Large bilateral layering pleural effusions. 4. Multifocal nodules, pulmonary spiculations and consolidations are noted bilaterally. As per history patient has lung cancer. Some of these nodules are concerning for malignancy. Others may be pneumonia or edema. 5. Mediastinal, hilar, retrocrural and celiac axis lymphadenopathy. Extent of the lymph node burden has progressed since the CT of 09/06/2022. 6. Noted hydronephrosis involving the superior poles of each kidney. Thoracentesis Ultrasound 11/28/22 17:58 IMPRESSION: Uncomplicated ultrasound-guided RIGHT thoracentesis. No pneumothorax on the post thoracentesis portable radiograph Chest X-Ray 11/30/22 04:00 IMPRESSION: Increased bilateral perihilar opacity and persistent pleural effusions since 11/28/2022. Findings suggest increased pulmonary edema, infection, or atelectasis. ADDENDUM: 11/30/22 0756 Correction: No pneumothorax. Laboratory Results WBC 8.6 10^3/uL (4.0-10.0) 11/30/22 04:24 RBC 4.01 10^6/uL (4.1-5.3) L 11/30/22 04:24 Hgb 11.6 g/dL (11.5-15.3) 11/30/22 04:24 Hct 35.8 % (37.0-47.0) L 11/30/22 04:24 MCV 89.3 fl (81-99) 11/30/22 04:24 MCH 28.9 pg (28.0-34.0) 11/30/22 04:24 MCHC 32.4 g/dL (30.0-36.0) 11/30/22 04:24 RDW 15.4 % (12.1-15.1) H 11/30/22 04:24 Plt Count 322 10^3/cmm (130-400) 11/30/22 04:24 MPV 9.0 fL (7.4-10.4) 11/30/22 04:24 Neut % (Auto) 74.1 % 11/30/22 04:24 Lymph % (Auto) 12.1 % 11/30/22 04:24 Mccormick % (Auto) 8.0 % 11/30/22 04:24 Eos % (Auto) 4.1 % 11/30/22 04:24 Baso % (Auto) 1.0 % 11/30/22 04:24 Neut # (Auto) 6.35 10^3/uL (1.8-7.7) 11/30/22 04:24 Lymph # (Auto) 1.0 10^3/uL (0.8-4.8) 11/30/22 04:24 Mccormick # (Auto) 0.7 10^3/uL (0.2-0.9) 11/30/22 04:24 Eos # (Auto) 0.4 10^3/uL (0.0-0.8) 11/30/22 04:24 Baso # (Auto) 0.1 10^3/uL (0.0-0.1) 11/30/22 04:24 Nucleated RBC % (auto) 0 % 11/30/22 04:24 Total Counted Not Reportable 11/27/22 12:30 Nucleated RBCs # 0.0 /100WBC 11/30/22 04:24 PT 12.80 SECONDS (12.1-14.9) 11/28/22 09:45 INR 0.93 (0.8-1.2) 11/28/22 09:45 Specimen Type Arterial 11/27/22 11:44 Sample Site Radial, left 11/27/22 11:44 ABG pH 7.38 (7.35-7.45) 11/27/22 11:44 ABG pCO2 34.9 mmHg (35-45) L 11/27/22 11:44 ABG pO2 61.6 mmHg (80.0-100.0) L 11/27/22 11:44 ABG HCO3 20.6 mmol/L (22-26) L 11/27/22 11:44 ABG Base Excess -3.9 mmol/L (-2.0-2.0) L 11/27/22 11:44 Chad Test Pos 11/27/22 11:44 Hematocrit 38.8 % (37-47) 11/27/22 11:44 Hgb O2 Saturation 90.6 % (95-100) L 11/27/22 11:44 Carboxyhemoglobin 1.4 %THgb (0.4-20.1) 11/27/22 11:44 Methemoglobin 0.5 % (0.4-1.5) 11/27/22 11:44 Total Hemoglobin 12.7 g/dL (12-16) 11/27/22 11:44 O2 Delivery Device Nc 11/27/22 11:44 O2 Liters/Min 5.0 % 11/27/22 11:44 Food Service Ambassador ID Felipe 11/27/22 11:44 Sodium 140 mmol/L (136-145) 11/30/22 04:24 Potassium 4.0 mmol/L (3.5-5.1) 11/30/22 04:24 Chloride 102 mmol/L (98-107) 11/30/22 04:24 Carbon Dioxide 26 mmol/L (22-29) 11/30/22 04:24 Anion Gap 16.0 (5-19) 11/30/22 04:24 BUN 15 mg/dL (8-23) 11/30/22 04:24 Creatinine 1.0 mg/dL (0.5-0.9) H 11/30/22 04:24 GFR Calculation Not Reportable 11/30/22 04:24 Glucose 92 mg/dL (65-115) 11/30/22 04:24 Calculated Osmolality 290 mOsm/kg (285-295) 11/30/22 04:24 Calcium 8.6 mg/dL (8.5-10.5) 11/30/22 04:24 Magnesium 2.0 mg/dL (1.7-2.3) 11/28/22 03:58 Total Bilirubin 0.3 mg/dL (0.15-1.2) 11/27/22 11:57 AST 28 U/L (0-32) 11/27/22 11:57 ALT 13 U/L (0-33) 11/27/22 11:57 Alkaline Phosphatase 119 U/L (35-105) H 11/27/22 11:57 Troponin T Baseline 22 ng/L (0-10) H 11/27/22 11:57 Troponin T 120 Minute 23.78 ng/L (0-10) H 11/27/22 14:14 Delta Troponin T 1.78 ABS# (0-10) 11/27/22 14:14 Troponin T Hi Sens 6Hr 25.50 ng/L (0-10) H 11/27/22 19:05 Troponin T Hi Sens 6Hr Delta 3.50 ng/L (0-12) 11/27/22 19:05 C-Reactive Protein 76.6 mg/L (0.0-4.9) H 11/28/22 03:58 NT-Pro-B Natriuret Pep 339 pg/mL (0-125) H 11/27/22 11:57 Total Protein 6.6 g/dL (6.6-8.7) 11/27/22 11:57 Albumin 3.2 g/dL (3.5-5.2) L 11/27/22 11:57 Globulin 3.4 g/dL (1.3-4.6) 11/27/22 11:57 Fluid LDH Cancelled 11/27/22 12:30 Pleural Color Yellow (Pale Yellow) H 11/27/22 12:30 Pleural Appearance Cloudy (CLEAR) 11/27/22 12:30 Pleural pH 8.00 (6.5-7.5) H 11/27/22 12:30 Pleural WBC 1752.000 /uL (0-1000) H 11/27/22 12:30 Pleural RBC 2.000 10^3/uL 11/27/22 12:30 Pleural Other Cells Not Reportable 11/27/22 12:30 Pleural Polynuclear % 10 % 11/27/22 12:30 Pleural Mononuclear % 90 % 11/27/22 12:30 Pleural Total Protein 3.3 g/dL 11/27/22 12:30 Pleural Albumin 1.9 g/dL 11/27/22 12:30 Pleural LDH 152 U/L 11/27/22 12:30 Pleural Glucose 79.0 mg/dL 11/27/22 12:30 Path Cons w/Slide Yes 11/27/22 12:30 Procedures Performed Right Sided Thoracentesis Vitals Last Vital Signs Temp 97.9 F 11/30/22 12:00 Pulse 79 11/30/22 12:00 Resp 16 11/30/22 12:00 BP 117/75 11/30/22 12:00 Pulse Ox 92 11/30/22 12:00 O2 Del Method Nasal Cannula 11/30/22 12:00 O2 Flow Rate 3 11/30/22 07:52 Discharge Plan Discharge Patient Disposition: Home Condition: Stable Prescriptions: New sennosides-docusate sodium [Stool Softener-Laxative] 8.6-50 mg Tablet 2 tab PO DAILY 30 Days Qty: 100 0RF albuterol sulfate [Ventolin HFA] 90 mcg/actuation HFA aerosol inhaler 2 inh inhalation Q4H PRN (Reason: shortness of breath or wheezing) Qty: 8.5 1RF Continued polyethylene glycol 3350 [Miralax] 17 gram/dose powder 17 g PO DAILY PRN (Reason: Constipation) alprazolam [Xanax] 0.25 mg tablet 0.25 mg PO TID PRN (Reason: anxiety) Qty: 90 0RF oxycodone 5 mg tablet 5 mg PO Q4H PRN (Reason: pain) 30 Days Qty: 100 0RF levothyroxine 75 mcg tablet See Rx Instructions .ROUTE .COMPLEX Rx Instructions: 75 mcg orally Friday through Friday, 37.5 mcg on Friday Discharge Orders: Discharge Order (Routine); Ordered 11/30/22 Ordered By: Britton Reich Other Ambulatory Orders: DME: Oxygen (Order) Location: None Selected Ordered By: Britton Reich DME: Walker (Order) Location: None Selected Ordered By: Izabella Brower Referrals: Loli Jason MD [Primary Care Provider] - 4-7 days (Please call Friday to schedule your follow up appointment.) Brian Wiggins MD [Physician] - 12/03/22 7:00 am (friday 7 am procedure right sided pleurex and mediport placement by Dr stanley WIGGINS office to co-ordinate ) Discharge Diet: Advance as tolerated and Usual diet Discharge Activity: Resume usual activity and Increase activity as tolerated Patient Instructions: Dysuria - Female, Pleural Effusion (DC), Opioid Safety Activity Restrictions/Additional Instructions: 1. Increase activity as tolerated. 2. Dr Wiggins's office to contact Friday regarding thoracic drain. 3. Follow up on Friday morning for procedures. 4. Follow up with PCP. 5. Take medications as prescribed. 6. Use oxygen as prescribed. Discharge Attestations Time Spent in Discharge Care*: greater than 30 min Status at Discharge: Overall status at discharge: patient is progressing back to baseline Quality Metrics Clinical Quality Measures [ No reported AMI, CVA or VTE this stay] Coding Level of Care Code Acute Code for Chg Fwd Diagnoses Bilateral pleural effusion J90
[2022-11-30] MEDS: oxyCODONE 5 mg IR Tab/Cap PO (14:47)
== END 2022-11-30 15:29 | disposition home or self-care (01) | DRG 181 ==
LOC: ER 15:27 → MEDSURG 16:46
PROVIDERS: Admitting Provider Internal Medicine; Emergency Provider Emergency Medicine; PCP Family Medicine; Visit Provider Internal Medicine
DX: C78.01 Secondary malignant neoplasm of right lung (principal); J90 Pleural effusion, not elsewhere classified; C78.02 Secondary malignant neoplasm of left lung; C67.9 Malignant neoplasm of bladder, unspecified; F41.9 Anxiety disorder, unspecified; Z79.891 Long term (current) use of opiate analgesic; E03.9 Hypothyroidism, unspecified; Z87.891 Personal history of nicotine dependence; M81.0 Age-related osteoporosis without current pathological fracture; Z66 Do not resuscitate
CPT/HCPCS: 32555; 36415; 36600; 71045; 71275; 80048; 80053; 80503; 82042; 82805; 82945; 83615; 83735; 83880; 83986; 84157; 84484; 85014; 85018; 85025; 85610; 86140; 89050; 93005; 94760; 96372; 97110; 97161; 99284; 99285; J1644; J7030; Q9967

== ENCOUNTER 2022-11-29 06:00 | Oncology outpatient (recurring) (ONCR) | payer MEDICARE, OTHER, SELFPAY | END 2022-12-27 23:59 | disposition home or self-care (01) | LOC: ONCMED 01-28 13:37 | PROVIDERS: PCP Family Medicine; Visit Provider Internal Medicine Hematology & Oncology | DX: C67.8 Malignant neoplasm of overlapping sites of bladder (principal); C78.02 Secondary malignant neoplasm of left lung; Z90.6 Acquired absence of other parts of urinary tract; J90 Pleural effusion, not elsewhere classified; Z79.899 Other long term (current) drug therapy; Z95.828 Presence of other vascular implants and grafts; Z87.891 Personal history of nicotine dependence | CPT/HCPCS: 99214 ==

== ENCOUNTER 2022-12-03 06:06 | Day surgery (SDC) | payer MEDICARE, OTHER, SELFPAY ==
[2022-12-03] VITALS (12 sets, daily range): BP systolic 107–141; BP diastolic 70–77; PULSE 75–97; RESP 13–18; TEMP 36.1–37.2; O2SAT 92–99
--- NOTE | 2022-12-03 06:48 | P.ANESASSM_ITS ---
Pre-Anesthetic Assessment Height/Weight: Height 1.57 m Weight 45.359 kg Temp Pulse Resp BP Pulse Ox O2 Del Method 99.0 F 97 16 120/77 95 Room Air 12/03/22 06:36 12/03/22 06:36 12/03/22 06:36 12/03/22 06:36 12/03/22 06:36 12/03/22 06:36 Operation Date: 12/03/22 07:00 Proposed Procedures p [place] Pleural Catheter Insertion(Not Applicable) - Brian Wiggins MD Familial anesthetic complications: None Was Beta Seema taken within 24 hours: N/A Was Clonidine taken within 24 hours: N/A Last intake: Intake Last Liquid Date 12/02/22 Last Liquid Time 17:00 Last Solid Date 12/02/22 Last Solid Time 17:00 Social No alcohol and No tobacco former smoker Exam alert, oriented x 3, clear to auscultation bilaterally and regular rate & rhythm diminished on nasal canula Airway Mallampati: Class III Dentition: partials Pulmonary lung cancer (mets) w/ pleural effusions bladder cancer Metabolic Thyroid Disease Anesthetic Plan ASA status: 4 Anesthesia: MAC Risk of > 500 ml blood loss (7ml/kg in children): No Medications/Allergies Home Medications Medication Instructions Recorded Confirmed Last Taken Type alprazolam 0.25 mg tablet (Xanax) 0.25 mg PO TID PRN anxiety #90 tabs 11/21/22 12/02/22 12/03/22 05:00 Rx polyethylene glycol 3350 17 17 g PO DAILY PRN Constipation 11/21/22 12/02/22 11/28/22 History gram/dose oral powder (Miralax) oxycodone 5 mg tablet 5 mg PO Q4H PRN pain 30 days #100 11/26/22 12/02/22 12/03/22 05:00 Rx tabs levothyroxine 75 mcg tablet See Rx Instructions .Route .COMPLEX 11/27/22 12/02/22 12/03/22 05:00 History albuterol sulfate 90 mcg/actuation 2 inh inhalation Q4H PRN shortness 11/30/22 12/02/22 Unknown Rx aerosol inhaler (Ventolin HFA) of breath or wheezing #8.5 grams sennosides 8.6 mg-docusate sodium 2 tab PO DAILY 30 days #100 tabs 11/30/22 06/0 11/1911/28/22 Rx 50 mg tablet (Stool Softener-Laxative) Allergies Allergy/AdvReac Type Severity Reaction Status Date / Time ciprofloxacin Allergy nausea Verified 12/02/22 14:32 sulfamethoxazole Allergy nausea Verified 12/02/22 14:32 [From Bactrim] trimethoprim [From Bactrim] Allergy nausea Verified 12/02/22 14:32 [facility] Anesthesia Medical History Bladder cancer Diverticulosis Hypothyroidism Pelvic floor weakness pessary Prophylactic ovary removal UPJ obstruction, acquired Surgical History History of oophorectomy, unilateral History of transurethral resection of bladder tumor (TURBT) Family History Father , Age 79 COPD (chronic obstructive pulmonary disease) Dementia Cancer prostate Mother , Age 83 Asthma CAD (coronary artery disease) Denies family history of Diabetes Hypertension Stroke Social History Smoking and tobacco status: former smoker Quit status (tobacco): has quit using tobacco Second hand smoke exposure: No Smoking risk assessment/counseling performed?: Yes Alcohol intake: current Alcohol intake frequency: holidays/special occasions only Alcohol type: wine Substance/Drug Use: never Lives independently: Yes Household members: spouse Housing: House Marital status: Number of children: 1 Number of grandchildren: 3 Highest education level completed: Bachelor's Degree service: No Current occupational 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
[2022-12-03] MEDS: sodium chloride 0.9% 1,000 ML 30 ML IV (06:49)
--- NOTE | 2022-12-03 06:49 | W.PM.OPSUD ---
Surgery/Procedure H&P Update DATE OF PROCEDURE: December 03, 2022 DATE H&P PERFORMED: 11/30/22 H&P UPDATE INFORMATION: I have reviewed H&P completed within last 30 days, I have examined patient prior to procedure and No changes to prior documentation PREOP DIAGNOSIS: Recurrent right pleural effusion PRIMARY INDICATION FOR PROCEDURE: Right pleural drain placement for chronic management of recurrent right pleural effusion PLANNED PROCEDURE: Operation Date: 12/03/22 07:00 Proposed Procedures p [place] Pleural Catheter Insertion(Not Applicable) - Brian Wiggins MD
[2022-12-03] MEDS: ceFAZolin 2,000 MG in sodium chloride 0.9% (plus) 50 ML 100 MG IV (07:02)
--- NOTE | 2022-12-03 07:21 | SC_ITS ---
WS: [id number] C-ARM RADIOGRAPHS CHEST; 2 IMAGES HISTORY: bear drain right COMPARISON: Chest radiograph 11/30/2022 Catheter projects over the RIGHT thorax. Consistent with [place] drain placement. SC/C-arm FL for Drainage [id number] IMPRESSION: Intraoperative imaging during RIGHT [place] drain placement.
--- NOTE | 2022-12-03 07:35 | SUR.OPER ---
0735 15.5fr drain placed right lateral side of chest, 1% lidocaine 13ml used for the kit expiring 08/27/24
--- NOTE | 2022-12-03 08:01 | PM.OP ---
Operative Report Date of procedure: December 03, 2022 Pre-op diagnosis: Preop Diagnosis Recurrent right pleural effusion Post-op diagnosis: same Procedure done: Tunneled left pleural drain placement Specimens removed/disposition: 1 L clear, merced pleural fluid Pathology: none sent Surgeon: Brian Wiggins Anesthesia: MAC and Local Complications: None Condition: stable Disposition: same day Brief History: Ms. Olmedo is a pleasant 72-year-old female with advanced bladder carcinoma with recurrent pleural effusions right greater than left. She has had several thoracenteses on the right side. Total pleural drain placement has been recommended to allow for continued outpatient management of her effusion. Details, risks, and rationale for catheter placement were carefully and frankly discussed. Appropriate consents have been reviewed and signed. Procedure: The entire right chest was sterilely prepped and draped. 1% lidocaine was infiltrated in the posterior axillary line approximately at the seventh interspace level. Introducer needle was then placed with return of merced-colored pleural fluid. Fluoroscopy was subsequently utilized throughout the procedure for guidewire and dilator advancement and subsequent introducer positioning and Sharkey catheter drain placement. Lidocaine was utilized to infiltrate the subcutaneous layer continuing anteriorly. A #11 scalpel blade was used to incise the skin on the guidewire and also anteriorly. Tunneler was utilized to pass the drain anteriorly to posteriorly in the subcutaneous fashion. Dilators were then placed over the guidewire to dilate the tract into the pleural space. Dilator and tear away sheath was then placed. Dilator was removed and pleural drain was placed to the tear-away sheath and the tear-away sheath was then removed. Drain was easily aspirated of large volume of approximately 1 L of clear, merced pleural fluid. Once completed, the incisions were closed with 3-0 Vicryl suture. A silk suture was utilized to secure the drain to the skin. Ms. Olmedo tolerated the procedure well. Sterile dressings were applied. She was returned to outpatient surgery. I did nurses' association counselor with her family at the completion of the procedure.
--- NOTE | 2022-12-03 08:33 | PC.SOCIAL ---
Daniel from [facility] called and states that patient is discharging from OPS and Dr. Wiggins ordered . Choices obtained for [facility], sent to [facility] and notified Jay. Jay states that she will look at it and get back to .
--- NOTE | 2022-12-03 13:53 | PC.SOCIAL ---
Jay with [facility] states that they are able to accept patient. JOSE DE JESUS called, patient was resting but answered the phone. He states that [facility] has called and they plan on seeing her tomorrow.
--- NOTE | 2022-12-03 15:50 | ANE.PACU2 ---
Inpatient post-anesthesia follow up: Airway intact: Yes Vital signs: Temperature 97.2 F Pulse Rate 76 Respiratory Rate 16 Blood Pressure 107/70 Pulse Oximetry 95 Oxygen Delivery Me thod Nasal Cannula Oxygen Flow Rate 2 Fraction of Inspir ed Oxygen Hydration adequate: Yes Nausea and vomiting: Yes Pain level: 1 Mental status: Baseline
== END 2022-12-03 09:52 | disposition home health service (06) ==
PROVIDERS: Thoracic Surgery (Cardiothoracic Vascular Surgery); PCP Family Medicine; Visit Provider Surgery
PROC: (CPT 32550; principal; 2022-12-03 07:00)
DX: J90 Pleural effusion, not elsewhere classified (principal); C78.00 Secondary malignant neoplasm of unspecified lung; E03.9 Hypothyroidism, unspecified; Z87.891 Personal history of nicotine dependence; C67.9 Malignant neoplasm of bladder, unspecified
CPT/HCPCS: 32550; 75989; C1729; J0690; J2250; J2370; J2704; J3010; J7030